=== PATIENT | male | born 1965 | race Caucasian/White ===

== ENCOUNTER 2017-05-04 19:22 | Observation (INO) | payer OTHER ==
[2017-05-04] MEDS ORDERED: Ondansetron INJ* 2 MG/ML VIAL IV ONE (19:53)
[2017-05-04] MEDS ORDERED: Morphine INJ* 4 MG/ML 1 ML CARPUJECT IV ONE (19:53)
[2017-05-04] MEDS ORDERED: NS 0.9% 1000 ML* 1,000 ML IV ONE (19:53)
[2017-05-04 20:22] LABS: Hematocrit 53 % (42-52); Hemoglobin 17.8 g/dl (14.0-18.0); Mean Corpuscular HGB Conc 34 g/dl (31-36); Mean Corpuscular Hemoglobin 30 pg (27-31); Mean Corpuscular Volume 89 fL (80-94); Mean Platelet Volume 7 um3 (7.4-10.4); Red Blood Count 5.89 10^6/ul (4.0-5.4); Red Cell Distribution Width 14 % (10.5-15); White Blood Count 10.5 10^3/ul (3.5-10.8)
[2017-05-04 20:34] LABS: Albumin 3.9 g/dL (3.2-5.2); BUN/Creatinine Ratio 15.2 (8-20); Calcium 9.6 mg/dL (8.6-10.3); EGFR African American 102.1 (>60); EGFR Non-African American 79.4 (>60); Globulin 3.2 g/dL (2-4); Potassium 4.3 mmol/L (3.5-5.0); Total Bilirubin 0.8 mg/dL (0.2-1.0); Total Protein 7.1 g/dL (6.4-8.9)
--- NOTE | 2017-05-04 20:44 | RAD ---
HISTORY: Right hip tenderness COMPARISONS: None VIEWS: 3, Frontal view of the pelvis with frontal and frog-leg views of the right hip FINDINGS: BONE DENSITY: Normal. BONES: There is no displaced fracture. JOINTS: There is mild osteoarthritis of the right hip. ALIGNMENT: There is no dislocation. SOFT TISSUES: Unremarkable. OTHER FINDINGS: Degenerative changes are noted of the spine IMPRESSION: NO ACUTE OSSEOUS INJURY. IF SYMPTOMS PERSIST, RECOMMEND REPEAT IMAGING.
[2017-05-04] MEDS ORDERED: Iohexol 300* (CONTRAST) 10 ML SDV IV ONE (21:24)
[2017-05-04 23:07] LABS: Urine Bacteria Absent (Absent); Urine Bilirubin Negative (Negative); Urine Glucose Negative (Negative); Urine Nitrite Negative (Negative); Urine Sperm Present (Absent)
[2017-05-05] MEDS ORDERED: Morphine INJ* 4 MG/ML 1 ML CARPUJECT IV ONE (01:04)
[2017-05-05] MEDS ORDERED: Albuterol 2.5 MG/3 ML NEB.SOL* (0.083%) INH PRN (01:07)
[2017-05-05] MEDS ORDERED: Ondansetron INJ* 2 MG/ML VIAL IV PRN (01:08)
--- NOTE | 2017-05-05 02:00 | ED ---
Nikolas Patton Tiffany, scribed for Tee Poole on 05/04/17 at 2047 . Lower Extremity - HPI Summary HPI Summary: This patient is a 52 year old M BIBA to [facility] with a chief complaint of right hip pain since two days ago. The pain is in the back of his right leg. The patient rates the pain 10/10 in severity. Symptoms aggravated by movement. Symptoms alleviated by nothing. Patient reports being unable to ambulate. Patient denies dysuria. The patient reports that he did not fall or sustain trauma to his right hip. - History of Current Complaint Chief Complaint: EDHipPelvisInjury Stated Complaint: HIP PAIN Time Seen by Provider: 05/04/17 19:25 Hx Obtained From: Patient Onset/Duration: Days - 2 Severity Currently: Severe Pain Intensity: 10 Pain Scale Used: 0-10 Numeric Associated Signs And Symptoms: Positive: Negative - Dsyuria Aggravating Factor(s): Movement Alleviating Factor(s): Nothing - Allergies/Home Medications Allergies/Adverse Reactions: Allergies Allergy/AdvReac Type Severity Reaction Status Date / Time Loratadine [From Claritin] Allergy Intermediate Hives Verified 05/04/17 19:25 Bupropion Allergy See Comment Verified 05/05/17 01:02 Home Medications: Home Medications Acetaminophen TAB* [Tylenol TAB*] 325 mg PO Q4H PRN 05/05/17 [History Confirmed 05/05/17] Allopurinol TAB* [Zyloprim 100 MG TAB*] 100 mg PO DAILY 05/05/17 [History Confirmed 05/05/17] Aspirin TAB* [Aspirin 325 MG TAB*] 325 mg PO DAILY 05/05/17 [History Confirmed 05/05/17] Budesonide/Formote 160/4.5(NF) [Symbicort 160/4.5 (NF)] 2 puff INH BID 05/05/17 [History Confirmed 05/05/17] Clotrimazole 1% CREAM* [Clotrimazole 1%*] 1 applic TOPICAL BID 05/05/17 [ History Confirmed 05/05/17] Ropinirole Hydrochloride [Requip] 0.5 mg PO 05/05/17 [History] Valsartan TAB* [Diovan TAB*] 160 mg PO DAILY 05/05/17 [History Confirmed ] Vilazodone (NF) [Viibryd (NF)] 40 mg PO DAILY 05/05/17 [History Confirmed ] predniSONE TAB* [Deltasone TAB*] 20 mg PO DAILY 05/05/17 [History Confirmed ] PMH/Surg Hx/FS Hx/Imm Hx Previously Healthy: No Endocrine/Hematology History: Denies: Hx Diabetes Cardiovascular History: Reports: Hx Hypertension - ON MEDICATION FOR, Hx Myocardial Infarction - ? [place] 1986 Denies: Hx Angina, Hx Pacemaker/ICD Respiratory History: Reports: Hx Sleep Apnea Denies: Hx Asthma GI History: Reports: Hx Gastroesophageal Reflux Disease - HX OF IN THE PAST, Hx Ulcer - HX OF IN THE PAST History: Reports: Hx Kidney Stones - 10-15 YEARS AGO Musculoskeletal History: Reports: Hx Arthritis, Hx Gout, Other Musculoskeletal History - CYST REMOVED FROM BACK IN 1990 Sensory History: Reports: Hx Contacts or Glasses - READING GLASSES Denies: Hx Hearing Aid Opthamlomology History: Reports: Hx Contacts or Glasses - READING GLASSES Psychiatric History: Denies: Hx Panic Disorder - Surgical History Surgery Procedure, Year, and Place: TISSUE IN SACRAL AREA REMOVED-1990. [facility] Hx Anesthesia Reactions: No - Immunization History Date of Tetanus Vaccine: unk Date of Influenza Vaccine: none Infectious Disease History: No Infectious Disease History: Denies: Traveled Outside the [place] in Last 30 Days - Family History Known Family History: Positive: Cardiac Disease - Social History Alcohol Use: Occasionally Alcohol Amount: 6 PACK PER WEEK / 4 OUNCES OF VODKA PER WEEK Hx Substance Use: No Substance Use Type: Reports: None Substance Use Comment - Amount & Last Used: DOES RARELY Hx Tobacco Use: Yes Smoking Status (MU): Light Every Day Tobacco Smoker Type: Cigarettes Amount Used/How Often: 1 E-CIGARETTE, OCC. CIGARETTES- IN PROCESS OF QUITTING- SMOKER-38 YEARS Have You Smoked in the Last Year: Yes Review of Systems Negative: dysuria Positive: Other - Right hip pain All Other Systems Reviewed And Are Negative: Yes Physical Exam - Summary Physical Exam Summary: Appearance: Well appearing, no pain distress Skin: warm, dry, reflects adequate perfusion Head/face: normal Eyes: EOMI, ANIBAL ENT: normal Neck: supple, non-tender Respiratory: CTA, breath sounds present Cardiovascular: Pulse is feebly felt in right foot Abdomen: non-tender, soft Bowel: present Musculoskeletal: Tenderness in right lower quadrant and right groin, restricted ROM in right leg Neuro: normal, sensory motor intact, A&Ox3 Triage Information Reviewed: Yes Vital Signs On Initial Exam: Initial Vitals Temp Pulse Resp BP Pulse Ox 98.4 F 96 20 140/85 92 05/04/17 19:24 05/04/17 19:24 05/04/17 19:24 05/04/17 19:24 05/04/17 19:24 Vital Signs Reviewed: Yes - Jabier Coma Scale Coma Scale Total: 15 Diagnostics - Vital Signs Vital Signs Temp Pulse Resp BP Pulse Ox 05/04/17 19:24 98.4 F 96 20 140/85 92 - Laboratory Lab Results: Lab Results 05/04/17 05/04/17 05/04/17 Range/Units 20:10 20:10 20:10 WBC 10.5 (3.5-10.8) 10^3/ul RBC 5.89 H (4.0-5.4) 10^6/ul Hgb 17.8 (14.0-18.0) g/dl Hct 53 H (42-52) % MCV 89 (80-94) fL MCH 30 (27-31) pg MCHC 34 (31-36) g/dl RDW 14 (10.5-15) % Plt Count 226 (150-450) 10^3/ul MPV 7 L (7.4-10.4) um3 Neut % (Auto) 72.9 (38-83) % Lymph % (Auto) 13.8 L (25-47) % [place] % (Auto) 10.1 H (1-9) % Eos % (Auto) 2.0 (0-6) % Baso % (Auto) 1.2 (0-2) % Absolute Neuts (auto) 7.7 (1.5-7.7) 10^3/ul Absolute Lymphs (auto) 1.4 (1.0-4.8) 10^3/ul Absolute Monos (auto) 1.1 H (0-0.8) 10^3/ul Absolute Eos (auto) 0.2 (0-0.6) 10^3/ul Absolute Basos (auto) 0.1 (0-0.2) 10^3/ul Absolute Nucleated RBC 0.01 10^3/ul Nucleated RBC % 0.1 INR (Anticoag Therapy) 0.95 (0.77-1.02) APTT 31.0 (26.0-36.3) seconds Sodium 135 (133-145) mmol/L Potassium 4.3 (3.5-5.0) mmol/L Chloride 101 (101-111) mmol/L Carbon Dioxide 29 (22-32) mmol/L Anion Gap 5 (2-11) mmol/L BUN 15 (6-24) mg/dL Creatinine 0.99 (0.67-1.17) mg/dL Est GFR ( Amer) 102.1 (>60) Est GFR (Non-Af Amer) 79.4 (>60) BUN/Creatinine Ratio 15.2 (8-20) Glucose 146 H (70-100) mg/dL Calcium 9.6 (8.6-10.3) mg/dL Total Bilirubin 0.80 (0.2-1.0) mg/dL AST 12 L (13-39) U/L ALT 22 (7-52) U/L Alkaline Phosphatase 55 (34-104) U/L Total Protein 7.1 (6.4-8.9) g/dL Albumin 3.9 (3.2-5.2) g/dL Globulin 3.2 (2-4) g/dL Albumin/Globulin Ratio 1.2 (1-3) Lipase 103 H (11.0-82.0) U/L Urine Color Urine Appearance Urine pH (5-9) Ur Specific [place] (1.010-1.030) Urine Protein (Negative) Urine Ketones (Negative) Urine Blood (Negative) Urine Nitrate (Negative) Urine Bilirubin (Negative) Urine Urobilinogen (Negative) Ur Leukocyte Esterase (Negative) Urine WBC (Auto) (Absent) Urine RBC (Auto) (Absent) Ur Squamous Epith Cells (Absent) Urine Bacteria (Absent) Urine Sperm (Absent) Urine Glucose (Negative) 05/04/17 Range/Units 22:35 WBC (3.5-10.8) 10^3/ul RBC (4.0-5.4) 10^6/ul Hgb (14.0-18.0) g/dl Hct (42-52) % MCV (80-94) fL MCH (27-31) pg MCHC (31-36) g/dl RDW (10.5-15) % Plt Count (150-450) 10^3/ul MPV (7.4-10.4) um3 Neut % (Auto) (38-83) % Lymph % (Auto) (25-47) % [place] % (Auto) (1-9) % Eos % (Auto) (0-6) % Baso % (Auto) (0-2) % Absolute Neuts (auto) (1.5-7.7) 10^3/ul Absolute Lymphs (auto) (1.0-4.8) 10^3/ul Absolute Monos (auto) (0-0.8) 10^3/ul Absolute Eos (auto) (0-0.6) 10^3/ul Absolute Basos (auto) (0-0.2) 10^3/ul Absolute Nucleated RBC 10^3/ul Nucleated RBC % INR (Anticoag Therapy) (0.77-1.02) APTT (26.0-36.3) seconds Sodium (133-145) mmol/L Potassium (3.5-5.0) mmol/L Chloride (101-111) mmol/L Carbon Dioxide (22-32) mmol/L Anion Gap (2-11) mmol/L BUN (6-24) mg/dL Creatinine (0.67-1.17) mg/dL Est GFR ( Amer) (>60) Est GFR (Non-Af Amer) (>60) BUN/Creatinine Ratio (8-20) Glucose (70-100) mg/dL Calcium (8.6-10.3) mg/dL Total Bilirubin (0.2-1.0) mg/dL AST (13-39) U/L ALT (7-52) U/L Alkaline Phosphatase (34-104) U/L Total Protein (6.4-8.9) g/dL Albumin (3.2-5.2) g/dL Globulin (2-4) g/dL Albumin/Globulin Ratio (1-3) Lipase (11.0-82.0) U/L Urine Color Yellow Urine Appearance Clear Urine pH 5.0 (5-9) Ur Specific [place] 1.017 (1.010-1.030) Urine Protein Negative (Negative) Urine Ketones Negative (Negative) Urine Blood Negative (Negative) Urine Nitrate Negative (Negative) Urine Bilirubin Negative (Negative) Urine Urobilinogen Negative (Negative) Ur Leukocyte Esterase Trace H (Negative) Urine WBC (Auto) Trace(0-5/hpf) (Absent) Urine RBC (Auto) Absent (Absent) Ur Squamous Epith Cells Present H (Absent) Urine Bacteria Absent (Absent) Urine Sperm Present H (Absent) Urine Glucose Negative (Negative) Result Diagrams: 05/04/17 20:10 05/04/17 20:10 Lab Statement: Any lab studies that have been ordered have been reviewed, and results considered in the medical decision making process. - Radiology Hip Radiology Interpretation Completed By: Radiologist - NO ACUTE OSSEOUS INJURY. IF SYMPTOMS PERSIST, RECOMMEND REPEAT IMAGING. ED physician has reviewed this radiology report. - CT Abd/Pel CT Interpretation Completed By: Radiologist - No bowel obstruction, colitis, diverticulitis, free fluid or free air. Normal appendix. Unremarkable pancreas and gallbladder. Small hepatic cyst or hemangioma. Small right renal cyst. Patulous inguinal canals containing fat. Bone island S1. ED physician has reviewed this radiology report. Lower Extremity Course/Dx - Course Course Of Treatment: This patient is a 52 year old M BIBA to [facility] with a chief complaint of right hip pain since two days ago. CT Abd/Pel reveals, per radiologist, No bowel obstruction, colitis, diverticulitis, free fluid or free air. Normal appendix. Unremarkable pancreas and gallbladder. Small hepatic cyst or hemangioma. Small right renal cyst. Patulous inguinal canals containing fat. Bone island S1. Hip X-Ray reveals, per radiologist, NO ACUTE OSSEOUS INJURY. IF SYMPTOMS PERSIST, RECOMMEND REPEAT IMAGING. Urine culture obtained. In the ED course the patient was given Omnipaque, Morphine, and Zofran. I consulted with hospitalist, who agreed to admit patient. The patient is agreeable with this plan. - Diagnoses Differential Diagnosis/HQI/PQRI: Positive: Contusion, Dislocation, Fracture ( Closed), Sciatica, Sprain Provider Diagnoses: Right hip pain, Unable to ambulate - Physician Notifications Discussed Care Of Patient With: Ja Mora Time Discussed With Above Provider: 01:02 Instructed by Provider To: Other - Dr. Mora (hospitalist) agrees to admit the patient. Discharge - Discharge Plan Condition: Fair Disposition: ADMITTED TO [facility] Referrals: Saad Blanca MD [Primary Care Provider] - The documentation as recorded by the scribe, Connor,Karen accurately reflects the service I personally performed and the decisions made by , Tee Poole.
[2017-05-05 02:03] LABS: Hematocrit 51 % (42-52); Mean Corpuscular HGB Conc 33 g/dl (31-36); Mean Corpuscular Hemoglobin 30 pg (27-31); Mean Corpuscular Volume 90 fL (80-94); Mean Platelet Volume 7 um3 (7.4-10.4); Red Blood Count 5.69 10^6/ul (4.0-5.4); Red Cell Distribution Width 14 % (10.5-15); White Blood Count 9.8 10^3/ul (3.5-10.8)
[2017-05-05 02:17] LABS: EGFR African American 94.4 (>60); EGFR Non-African American 73.4 (>60)
[2017-05-05] MEDS: NS 0.9% 1000 ML* 1,000 ML IV SCH (04:52)
[2017-05-05 05:43] LABS: Hematocrit 53 % (42-52); Hemoglobin 17.7 g/dl (14.0-18.0); Mean Corpuscular HGB Conc 34 g/dl (31-36); Mean Corpuscular Hemoglobin 30 pg (27-31); Mean Corpuscular Volume 90 fL (80-94); Mean Platelet Volume 8 um3 (7.4-10.4); Red Blood Count 5.85 10^6/ul (4.0-5.4); Red Cell Distribution Width 14 % (10.5-15); White Blood Count 10.2 10^3/ul (3.5-10.8)
[2017-05-05] MEDS ORDERED: Nicotine Inhaler* 10 MG AMP INH PRN (06:03)
--- NOTE | 2017-05-05 06:26 | HP ---
H&P (Free Text) History and Physical: PCP: Caryn Blanca MD Date/Time: 05/05/2017 0105 CC: R groin pain HPI: Mr Pan is a 52YO morbidly obese white male HX HTN, COPD, gout reports onset Friday afternoon of R groin pain gradually progressing to severe leaving him unable to ambulate or lift either leg from the bed. He denies change in activity, injury, and fall. He relates a similar episode a few months ago lasting for 3 days before spontaneous resolution, but for which he was not evaluated. Pain is pressure-like, exacerbated by palpation & movement. There has been no F/C, sweats, rash, or other issues. PMedHx HTN COPD SURY gout restless leg syndrome Ambulatory Orders Acetaminophen TAB* [Tylenol TAB*] 325 mg PO Q4H PRN 05/05/17 Allopurinol TAB* [Zyloprim 100 MG TAB*] 100 mg PO DAILY 05/05/17 Aspirin TAB* [Aspirin 325 MG TAB*] 325 mg PO DAILY 05/05/17 Budesonide/Formote 160/4.5(NF) [Symbicort 160/4.5 (NF)] 2 puff INH BID 05/05/17 Ropinirole Hydrochloride [Requip] 0.5 mg PO BEDTIME 05/05/17 Valsartan TAB* [Diovan TAB*] 160 mg PO DAILY 05/05/17 Vilazodone (NF) [Viibryd (NF)] 40 mg PO DAILY 05/05/17 predniSONE TAB* [Deltasone TAB*] 20 mg PO DAILY 05/05/17 Allergies Loratadine [From Claritin] Allergy (Intermediate, Verified 05/04/17 19:25) Hives heart racing not sure if it was claritin or claritin d Bupropion Allergy (Verified 05/05/17 01:02) See Comment visual disturbances PSurgHx tonsillectomy cardiac cath 2015 (negative) back surgery SocHx: 1/2 PPD cigarettes, ~6 alcoholic drinks weekly, no recreational drugs; lives with his girlfriend; unemployed superintendent construction/burks; full code status FamHx: positive for HTN, DM, & CAD ROS: as above, otherwise reviewed and all were negative vitals: Vital Signs Temp 36.9 C 05/04/17 19:24 Pulse 89 05/05/17 04:14 Resp 18 05/05/17 04:14 BP 108/67 05/05/17 04:27 Pulse Ox 91 05/05/17 04:27 Intake & Output 05/04/17 05/04/17 05/05/17 11:59 23:59 11:59 Intake Total 1000 Balance 1000 Weight 125.645 kg Intake: IV Fluids 1000 Constitutional: NAD, normally developed, morbidly obese white male HEENM: atraumatic; sclera/conjunctiva: anicteric/clear; hearing: clinically intact; oropharynx: clear, mucosa moist Neck: soft tissue: non-tender; thyroid: normal Pulmonary: clear to auscultation bilaterally, good aeration, no accessory muscle use CV: RR/RR, normal S1S2, no carotid bruit, no jugular venous distention, 2+ B DP/ PT, no edema Abdominal: soft, non-distended, non-tender, no rebound/guarding/rigidity, normoactive bowel sounds, no hepatosplenomegaly or masses, no costovertebral angle tenderness Musculoskeletal: general: tender in R groin along inguinal ligament w/o impression of mass/hernia; gait: currently unable to ambulate 2nd pain, unable to lift either leg from bed w/o severe R groin pain, reasonable passive ROM but no active ROM of the R hip w/o severe pain Integumental: normal appearance and texture of affected area Psychiatric orientation: AA&O to PPS affect: calm mood: cooperative eye contact: good content: reliable responses: timely insight: fair Testing: Lab Results 05/04/17 05/04/17 05/04/17 Range/Units 20:10 20:10 20:10 WBC 10.5 (3.5-10.8) 10^3/ul RBC 5.89 H (4.0-5.4) 10^6/ul Hgb 17.8 (14.0-18.0) g/dl Hct 53 H (42-52) % MCV 89 (80-94) fL MCH 30 (27-31) pg MCHC 34 (31-36) g/dl RDW 14 (10.5-15) % Plt Count 226 (150-450) 10^3/ul MPV 7 L (7.4-10.4) um3 Neut % (Auto) 72.9 (38-83) % Lymph % (Auto) 13.8 L (25-47) % [place] % (Auto) 10.1 H (1-9) % Eos % (Auto) 2.0 (0-6) % Baso % (Auto) 1.2 (0-2) % Absolute Neuts (auto) 7.7 (1.5-7.7) 10^3/ul Absolute Lymphs (auto) 1.4 (1.0-4.8) 10^3/ul Absolute Monos (auto) 1.1 H (0-0.8) 10^3/ul Absolute Eos (auto) 0.2 (0-0.6) 10^3/ul Absolute Basos (auto) 0.1 (0-0.2) 10^3/ul Absolute Nucleated RBC 0.01 10^3/ul Nucleated RBC % 0.1 INR (Anticoag Therapy) 0.95 (0.77-1.02) APTT 31.0 (26.0-36.3) seconds Sodium 135 (133-145) mmol/L Potassium 4.3 (3.5-5.0) mmol/L Chloride 101 (101-111) mmol/L Carbon Dioxide 29 (22-32) mmol/L Anion Gap 5 (2-11) mmol/L BUN 15 (6-24) mg/dL Creatinine 0.99 (0.67-1.17) mg/dL Est GFR ( Amer) 102.1 (>60) Est GFR (Non-Af Amer) 79.4 (>60) BUN/Creatinine Ratio 15.2 (8-20) Glucose 146 H (70-100) mg/dL Calcium 9.6 (8.6-10.3) mg/dL Total Bilirubin 0.80 (0.2-1.0) mg/dL AST 12 L (13-39) U/L ALT 22 (7-52) U/L Alkaline Phosphatase 55 (34-104) U/L Total Protein 7.1 (6.4-8.9) g/dL Albumin 3.9 (3.2-5.2) g/dL Globulin 3.2 (2-4) g/dL Albumin/Globulin Ratio 1.2 (1-3) Lipase 103 H (11.0-82.0) U/L Urine Color Urine Appearance Urine pH (5-9) Ur Specific [place] (1.010-1.030) Urine Protein (Negative) Urine Ketones (Negative) Urine Blood (Negative) Urine Nitrate (Negative) Urine Bilirubin (Negative) Urine Urobilinogen (Negative) Ur Leukocyte Esterase (Negative) Urine WBC (Auto) (Absent) Urine RBC (Auto) (Absent) Ur Squamous Epith Cells (Absent) Urine Bacteria (Absent) Urine Sperm (Absent) Urine Glucose (Negative) 05/04/17 05/05/17 05/05/17 Range/Units 22:35 01:50 01:50 WBC (3.5-10.8) 10^3/ul RBC (4.0-5.4) 10^6/ul Hgb (14.0-18.0) g/dl Hct (42-52) % MCV (80-94) fL MCH (27-31) pg MCHC (31-36) g/dl RDW (10.5-15) % Plt Count (150-450) 10^3/ul MPV (7.4-10.4) um3 Neut % (Auto) (38-83) % Lymph % (Auto) (25-47) % [place] % (Auto) (1-9) % Eos % (Auto) (0-6) % Baso % (Auto) (0-2) % Absolute Neuts (auto) (1.5-7.7) 10^3/ul Absolute Lymphs (auto) (1.0-4.8) 10^3/ul Absolute Monos (auto) (0-0.8) 10^3/ul Absolute Eos (auto) (0-0.6) 10^3/ul Absolute Basos (auto) (0-0.2) 10^3/ul Absolute Nucleated RBC 10^3/ul Nucleated RBC % INR (Anticoag Therapy) 0.98 (0.77-1.02) APTT 28.7 (26.0-36.3) seconds Sodium (133-145) mmol/L Potassium (3.5-5.0) mmol/L Chloride (101-111) mmol/L Carbon Dioxide (22-32) mmol/L Anion Gap (2-11) mmol/L BUN 13 (6-24) mg/dL Creatinine 1.06 (0.67-1.17) mg/dL Est GFR ( Amer) 94.4 (>60) Est GFR (Non-Af Amer) 73.4 (>60) BUN/Creatinine Ratio (8-20) Glucose (70-100) mg/dL Calcium (8.6-10.3) mg/dL Total Bilirubin (0.2-1.0) mg/dL AST (13-39) U/L ALT (7-52) U/L Alkaline Phosphatase (34-104) U/L Total Protein (6.4-8.9) g/dL Albumin (3.2-5.2) g/dL Globulin (2-4) g/dL Albumin/Globulin Ratio (1-3) Lipase (11.0-82.0) U/L Urine Color Yellow Urine Appearance Clear Urine pH 5.0 (5-9) Ur Specific [place] 1.017 (1.010-1.030) Urine Protein Negative (Negative) Urine Ketones Negative (Negative) Urine Blood Negative (Negative) Urine Nitrate Negative (Negative) Urine Bilirubin Negative (Negative) Urine Urobilinogen Negative (Negative) Ur Leukocyte Esterase Trace H (Negative) Urine WBC (Auto) Trace(0-5/hpf) (Absent) Urine RBC (Auto) Absent (Absent) Ur Squamous Epith Cells Present H (Absent) Urine Bacteria Absent (Absent) Urine Sperm Present H (Absent) Urine Glucose Negative (Negative) 05/05/17 05/05/17 Range/Units 01:50 04:48 WBC 9.8 10.2 (3.5-10.8) 10^3/ul RBC 5.69 H 5.85 H (4.0-5.4) 10^6/ul Hgb 17.0 17.7 (14.0-18.0) g/dl Hct 51 53 H (42-52) % MCV 90 90 (80-94) fL MCH 30 30 (27-31) pg MCHC 33 34 (31-36) g/dl RDW 14 14 (10.5-15) % Plt Count 211 239 (150-450) 10^3/ul MPV 7 L 8 (7.4-10.4) um3 Neut % (Auto) 68.1 65.9 (38-83) % Lymph % (Auto) 17.0 L 19.2 L (25-47) % [place] % (Auto) 11.5 H 11.0 H (1-9) % Eos % (Auto) 2.7 2.8 (0-6) % Baso % (Auto) 0.7 1.1 (0-2) % Absolute Neuts (auto) 6.6 6.7 (1.5-7.7) 10^3/ul Absolute Lymphs (auto) 1.7 1.9 (1.0-4.8) 10^3/ul Absolute Monos (auto) 1.1 H 1.1 H (0-0.8) 10^3/ul Absolute Eos (auto) 0.3 0.3 (0-0.6) 10^3/ul Absolute Basos (auto) 0.1 0.1 (0-0.2) 10^3/ul Absolute Nucleated RBC 0.02 0.01 10^3/ul Nucleated RBC % 0.2 0.1 INR (Anticoag Therapy) (0.77-1.02) APTT (26.0-36.3) seconds Sodium (133-145) mmol/L Potassium (3.5-5.0) mmol/L Chloride (101-111) mmol/L Carbon Dioxide (22-32) mmol/L Anion Gap (2-11) mmol/L BUN (6-24) mg/dL Creatinine (0.67-1.17) mg/dL Est GFR ( Amer) (>60) Est GFR (Non-Af Amer) (>60) BUN/Creatinine Ratio (8-20) Glucose (70-100) mg/dL Calcium (8.6-10.3) mg/dL Total Bilirubin (0.2-1.0) mg/dL AST (13-39) U/L ALT (7-52) U/L Alkaline Phosphatase (34-104) U/L Total Protein (6.4-8.9) g/dL Albumin (3.2-5.2) g/dL Globulin (2-4) g/dL Albumin/Globulin Ratio (1-3) Lipase (11.0-82.0) U/L Urine Color Urine Appearance Urine pH (5-9) Ur Specific [place] (1.010-1.030) Urine Protein (Negative) Urine Ketones (Negative) Urine Blood (Negative) Urine Nitrate (Negative) Urine Bilirubin (Negative) Urine Urobilinogen (Negative) Ur Leukocyte Esterase (Negative) Urine WBC (Auto) (Absent) Urine RBC (Auto) (Absent) Ur Squamous Epith Cells (Absent) Urine Bacteria (Absent) Urine Sperm (Absent) Urine Glucose (Negative) CT abd/pel WO, personally reviewed: No bowel obstruction, colitis, diverticulitis, free fluid, or free air. Normal appendix. Unremarkable pancreas and gallbladder. Small hepatic cyst or hemangioma. XRY pelvis & R hip: IMPRESSION: NO ACUTE OSSEOUS INJURY. IF SYMPTOMS PERSIST, RECOMMEND REPEAT IMAGING. Impression: 52M presenting with intractable R groin pain of uncertain etiology DIAGNOSIS & PLAN Primary intractable R groin pain, suspect musculo-ligamentous : pain control : PT evaluation : consider orthopedic consult in AM : supportive care Secondary HTN : review meds once reconciled COPD : review meds once reconciled SURY : review meds once reconciled gout : review meds once reconciled restless leg syndrome : review meds once reconciled Admission Rational: observation for intractable R groin pain DVTp: heparin SQ Code Status: full
[2017-05-05] MEDS ORDERED: Mouth Piece, Nicotine* 1 EACH CARTRIDGE ONE (06:28)
[2017-05-05] MEDS: Omeprazole CAP* 20 MG PO SCH (06:41)
[2017-05-05] MEDS: Ketorolac INJ* 15 MG/ML 1 ML VIAL IV PRN (06:41)
--- NOTE | 2017-05-05 07:48 | RAD ---
INDICATION: Right lower quadrant pain. COMPARISON: There are no prior studies available for comparison. TECHNIQUE: A CT scan of the abdomen and pelvis was performed with intravenous and oral contrast following intravenous injection of 150 ml of Omnipaque 300 nonionic contrast. Contiguous axial sections were obtained from the lung bases through the symphysis pubis. Images were reconstructed in the coronal and sagittal planes. FINDINGS: There is mild dependent bilateral lower lobe subsegmental atelectasis. No pleural effusion is present. The liver and spleen are normal in size. The liver is decreased in attenuation consistent with fatty infiltration. There is a small nonspecific hypodense lesion present in the region of the caudate lobe of the liver measuring 1.5 x 1.7 cm in size which is a nonspecific finding although would favor a cyst or hemangioma. No calcified gallstones are seen. The pancreas appears to be within normal limits. The kidneys and adrenal glands are normal in size. No hydronephrosis is seen. There is a small cyst arising in the lower pole of the right kidney measuring 1.9 cm in size. The aorta is normal in caliber and demonstrates homogeneous contrast opacification. No significant enlarged retroperitoneal lymph nodes are seen. The stomach, small and large bowel appear nondistended. The appendix is within normal limits. There are scattered diverticuli within the transverse, descending and sigmoid colon. There is no evidence for diverticulitis or colitis. No free intraperitoneal air or fluid is seen. No significant focal osseous abnormality is seen. There is a small area of sclerosis within the S1 vertebra suggestive of a benign bone island. IMPRESSION: NO EVIDENCE FOR ACUTE FINDING OR CAUSE FOR THE PATIENT'S ABDOMINAL PAIN IS SEEN.
[2017-05-05] MEDS: Mometasone/Formoter 200/5 MDI INH SCH ×2 (07:50→21:29)
[2017-05-05] MEDS ORDERED: predniSONE TAB* 20 MG PO SCH (09:00)
[2017-05-05] MEDS: Allopurinol TAB* 100 MG PO SCH (09:52)
[2017-05-05] MEDS: Valsartan TAB* 160 MG PO SCH (09:52)
[2017-05-05] MEDS: Aspirin TAB* 325 MG PO SCH (09:52)
[2017-05-05] MEDS: PTO: Vilazodone (NF) 40 MG TAB PO SCH (10:49)
[2017-05-05] MEDS: fentaNYL* 50 MCG/ML 2 ML VIAL (100 MCG VIAL) IV SLOW PU PRN ×2 (11:25→18:17)
--- OUTSIDE RECORDS SUMMARY | 2017-05-05 12:56 | XMS REPORT ---
:1965 External Reference #:[id number] Author Organization [facility] Address [address] [address] Phone [phone] Care Team Providers Name Role Phone Saad Blanca MD Primary Care Physician Unavailable Payers Type Date Identification Numbers Payment Provider Subscriber Commercial Policy Number: [id number] [employer] Name: [id number] PayID: [id number] [place] [address] Problems Date Description Provider Status Onset: 06/16/2014 Essential hypertension Eduardo Mendez M.D. Active Onset: 06/16/2014 Snoring Eduardo Mendez M.D. Active Onset: 06/16/2014 Tobacco user Eduardo Mendez M.D. Active Onset: 08/05/2014 Dyssomnia Keesha Christianson MD Active Onset: 08/05/2014 Morbid obesity Keesha Christianson MD Active Onset: 08/08/2014 Erythrocytosis Eduardo Mendez M.D. Active Onset: 08/08/2014 Obstructive sleep apnea syndrome Eduardo Mendez M.D. Active Onset: 01/03/2015 Current tear of medial cartilage Henry Levine M.D. Active AND/OR meniscus of knee Onset: 08/03/2015 Complex tear of medial mensc, current Henry Levine M.D. Active injury, l knee, subs Onset: 08/28/2015 Bucket-hndl tear of medial mensc, Saad Blanca M.D. Active crnt injury, r knee, subs Onset: 04/22/2016 Chronic obstructive lung disease Saad Blanca M.D. Active Onset: 04/22/2016 Mild recurrent major depression Saad Blanca M.D. Active Onset: 05/09/2016 Diplopia Saad Blanca M.D. Active Onset: 05/17/2016 Obesity Saad Blanca M.D. 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 Active Family History Date Family Member(s) Problem(s) Comments General PGF Diabetes2 ; PGM breast cancer : (age 71 Years) Father due to CHF Father Diabetes Mother Parkinson Mother 70 Siblings 7 Siblings Brother at age 50 ?flu ; others alive and well Social History Type Date Description Comments Marital Status Lives With Girlfriend Occupation Construction ETOH Use Occasionally consumes alcohol Recreational Drug Use Former Drug User Marijuana every day since age 13 until 35 Smoking Patient is a former smoker Daily Caffeine Consumes on average 1 cup of regular coffee per day Daily Caffeine Consumes on average 1 cup of occ cup of coffee, not regular coffee per day everyday Exercise Type/Frequency Does not exercise Allergies, Adverse Reactions, Alerts Date Description Reaction Status Severity Comments 06/16/2014 Claritin active 05/17/2016 Bupropion visual disturb. active Moderate Medications Medication Date Status Form Strength Qnty SIG Indications Ordering Provider Prednisone 04/17 Active Tablets 20mg 10tab 2 tab by M25.579 s mouth 5 ika , MRubiDRubi Ropinirole HCL 03/03 Active Tablets 0.5mg 30tab 1 tablet F51.4 s daily in [place] the M.DRubi evening Valsartan 12/31 Active Tablets 160mg 30tab 1 by I10 s mouth [place]achikara every day , M.DRubi Viibryd 11/26 Active Tablets 40mg 30tab 1 by F33.0 s mouth [place]achikara every day , M.DRubi Clotrimazole 08/27 Active Cream 1% 90gm apply B35.9 twice Pachikara daily , MOlga Symbicort 04/05 Active Aerosol 160-4.5mc 30.6g 2 puff J44.9 g/Act m twice a day , M.D. Proair HFA 04/05 Active Aerosol 108(90Bas 25.5g 2 puffs J44.9 e) m ih every Pachikara mcg/Act 4 hours , M.D. as needed Aspirin Ec 08/04 Active Tablets 325mg [address] mouth every day Cpap Active Device as Unknown / directed hs Tylenol Active Tablets 325mg as needed / Viibryd 10/01 Hx Tablets 20mg 30tab once a s day 30mts CARLOS EDUARDO Awan - after 11/26 Viibryd Starter Pack 09/26 Hx Kit 10&20 1unit use as F33.0 mg s directed Pachika - , M.D. 10/01 Escitalopram Oxalate 05/17 Hx Tablets 10mg 30tab 1tab by F33.0 s mouth Pachikara - every day , M.D. 10/01 Valsartan 04/05 Hx Tablets 160mg 30tab 1 by F33.0 s mouth Pachikara - every day , M.D. 12/31 Bupropion HCL ER (XL) 04/05 Hx Tablets 150mg 30tab once F33.0 ER 24HR s daily in [facility] - the , M.D. 05/17 with food x week then 2 tab link Oxycodone HCL 11/27 Hx Tablets 5mg 20tab 1 tabs by s mouth Abner, - every 6 M.D. 05 hours needed Hydrocodone-Acetamino 11/23 Hx Tablets 5-325mg 60tab 1-2 by S83.232D Henry phen s mouth Abner, - every 4-6 M.D. 05 hours prn. Diltiazem HCL ER 08/27 Hx Caps ER 240mg 30cap once F33.0 Saad Coated 24HR s daily Pachika - , M.D. 04/05 Tramadol HCL 08/02 Hx Tablets 50mg 60tab 1 to 2 s tabs po Jerome, - every 6 M.D. 12/05 hours needed for pain. Can use with 2 ES Tylenol 500 mg. Naproxen 12/14 Hx Tablets 250mg 30tab 1 tablet 719.46 s by mouth Mendez, - twice a M.D. 08/01 day needed pain, with foods Naproxen 08/30 Hx Tablets 500mg 30tab 1 tablet 728.89 s by mouth Mendez, - twice a M.D. 12/14 day foods as needed pain Cyclobenzaprine HCL 08/30 Hx Tablets 10mg 45tab one by 728.89 s mouth Mendez, - three M.D. 08/01 times day as needed spasm Ibuprofen 08/04 Hx Tablets 200mg as needed - 11/11 Nystatin-Triamcinolon 07/08 Hx Cream 482170-8. 60gm Apply 1Unit/GM- over Mendez, - % affected M.D. 08/04 twice a day for 7 days. Hydrochlorothiazide 07/07 Hx Tablets 25mg 60tab 1/2 by s mouth Mendez, - every day M.D. 12/03 Hydrochlorothiazide 06/16 Hx Tablets 50mg 30tab 1 by s mouth Mendez, - every day M.D. 06/16 Hydrochlorothiazide 06/16 Hx Tablets 12.5mg 60tab 1 by s mouth Mendez, - every day M.D. 07/07 Lisinopril 06/16 Hx Tablets 20mg 120ta 1 tablet 401.9 bs by mouth Mendez, - twice a M.D. Losartan Potassium 06/16 Hx Tablets 50mg 180ta 1 by 401.9 bs mouth Mendez, - every day M.D. 08/01 Clotrimazole/Betameth 06/16 Hx Cream 1-0.05% 45gm apply 111.9 asone Dipropionate twice a Mendez, - day over M.D. 07/18 affected /2015 areas Hydrochlorothiazide 00 Hx Tablets 12.5mg 1 by Unknown /0000 mouth - every day 08/01 Clotrimazole/Betameth Hx Cream 1-0.05% apply 2 - Unknown asone Dipropionate /0000 3 times - daily as 08/01 Medications Administered in Office Medication Date Status Form Strength Qnty SIG Indications Ordering Provider Depomedbaldev Administered Injection Henry 80MG 015 Elizabeth Levine Immunizations CPT Code Status Date Vaccine Lot # [id number] Given 07/26/2016 Pneumonia Vaccine Vital Signs Date Vital Result Comment 04/17/2017 Weight 301.50 lb Heart Rate 90 /min BP Systolic Sitting 138 mmHg BP Diastolic Sitting 86 mmHg O2 % BldC Oximetry 91 % 03/18/2017 Height 70.5 inches 5'10.50" Weight 305.25 lb Heart Rate 76 /min BP Systolic 154 mmHg BP Diastolic 96 mmHg Body Temperature 98.7 F O2 % BldC Oximetry 98 % BMI (Body Mass Index) 43.2 kg/m2 03/03/2017 Weight 289.00 lb Heart Rate 87 /min BP Systolic Sitting 146 mmHg BP Diastolic Sitting 84 mmHg Body Temperature 97.8 F O2 % BldC Oximetry 91 % 12/31/2016 Height 70.50 inches 5'10.50" Weight 267.00 lb Heart Rate 82 /min BP Systolic 136 mmHg BP Diastolic 84 mmHg Body Temperature 97.9 F O2 % BldC Oximetry 97 % BMI (Body Mass Index) 37.8 kg/m2 11/26/2016 Weight 274.00 lb w/tools on Heart Rate 93 /min BP Systolic Sitting 110 mmHg BP Diastolic Sitting 70 mmHg Body Temperature 98.0 F O2 % BldC Oximetry 98 % 10/23/2016 Weight 273.25 lb with shoes Heart Rate 90 /min BP Systolic Sitting 146 mmHg LA lrg cuff BP Diastolic Sitting 88 mmHg LA lrg cuff Ejection Fraction 55% - 60% echo 09/27/15 09/26/2016 Weight 276.12 lb Heart Rate 91 /min BP Systolic Standing 160 mmHg BP Diastolic Standing 96 mmHg Body Temperature 97.9 F O2 % BldC Oximetry 98 % 08/27/2016 Weight 275.00 lb Heart Rate 95 /min BP Systolic Sitting 128 mmHg BP Diastolic Sitting 70 mmHg Body Temperature 98.4 F O2 % BldC Oximetry 95 % 07/26/2016 Weight 277.38 lb Heart Rate 88 /min BP Systolic Sitting 140 mmHg BP Diastolic Sitting 82 mmHg Body Temperature 98.5 F O2 % BldC Oximetry 94 % 06/13/2016 Weight 282.12 lb Heart Rate 98 /min BP Systolic Sitting 148 mmHg BP Diastolic Sitting 80 mmHg Body Temperature 97.9 F O2 % BldC Oximetry 98 % 05/17/2016 Height 70 inches 5'10" Weight 290.25 lb Heart Rate 92 /min BP Systolic Sitting 138 mmHg BP Diastolic Sitting 92 mmHg Body Temperature 97.7 F O2 % BldC Oximetry 96 % BMI (Body Mass Index) 41.6 kg/m2 05/09/2016 Height 70 inches 5'10" Weight 287.00 lb Heart Rate 92 /min BP Systolic Sitting 156 mmHg BP Diastolic Sitting 82 mmHg Body Temperature 98.5 F O2 % BldC Oximetry 93 % BMI (Body Mass Index) 41.2 kg/m2 04/22/2016 Height 70 inches 5'10" Weight 295.00 lb Heart Rate 98 /min BP Systolic Sitting 120 mmHg BP Diastolic Sitting 70 mmHg Body Temperature 97.3 F O2 % BldC Oximetry 97 % BMI (Body Mass Index) 42.3 kg/m2 04/05/2016 Height 70 inches 5'10" Weight 288.12 lb Heart Rate 93 /min BP Systolic Sitting 160 mmHg BP Diastolic Sitting 88 mmHg Body Temperature 98.0 F O2 % BldC Oximetry 95 % BMI (Body Mass Index) 41.3 kg/m2 12/08/2015 Height 70 inches 5'10" Weight 266.00 lb Body Temperature 98.2 F Pain Level 4 BMI (Body Mass Index) 38.2 kg/m2 12/05/2015 Height 70 inches 5'10" Weight 266.00 lb Heart Rate 98 /min BP Systolic Sitting 136 mmHg BP Diastolic Sitting 88 mmHg Body Temperature 98.5 F O2 % BldC Oximetry 97 % BMI (Body Mass Index) 38.2 kg/m2 11/24/2015 Height 70 inches 5'10" Weight 272.00 lb BP Systolic 140 mmHg BP Diastolic 82 mmHg Pain Level 4 BMI (Body Mass Index) 39.0 kg/m2 11/13/2015 Height 70 inches 5'10" Weight 268.00 lb with shoes Heart Rate 80 /min BP Systolic 144 mmHg Ra lrg cuff BP Diastolic 96 mmHg Ra lrg cuff BMI (Body Mass Index) 38.4 kg/m2 Ejection Fraction 55% - 60% echo 09/27/2015 10/18/2015 Height 70 inches 5'10" Weight 268.50 lb with shoes Heart Rate 82 /min BP Systolic 140 mmHg LA lrg cuff BP Diastolic 92 mmHg LA lrg cuff BMI (Body Mass Index) 38.5 kg/m2 Ejection Fraction 55%-60% echo 09/27/15 09/07/2015 Height 70 inches 5'10" Weight 266.75 lb with shoes Heart Rate 74 /min BP Systolic 132 mmHg Ra lrg cuff BP Diastolic 86 mmHg Ra lrg cuff BMI (Body Mass Index) 38.3 kg/m2 09/06/2015 Height 70 inches 5'10" Weight 279.00 lb Heart Rate 72 /min BP Systolic Sitting 136 mmHg BP Diastolic Sitting 88 mmHg Respiratory Rate 18 /min Pain Level 4 BMI (Body Mass Index) 40.0 kg/m2 08/28/2015 Height 70 inches 5'10" Weight 268.00 lb Heart Rate 84 /min BP Systolic Sitting 153 mmHg BP Diastolic Sitting 98 mmHg Body Temperature 98.3 F O2 % BldC Oximetry 96 % BMI (Body Mass Index) 38.4 kg/m2 08/03/2015 Height 70 inches 5'10" Weight 279.00 lb BMI (Body Mass Index) 40.0 kg/m2 01/03/2015 Height 70 inches 5'10" Weight 279.00 lb Heart Rate 89 /min BP Systolic Sitting 135 mmHg BP Diastolic Sitting 87 mmHg Respiratory Rate 20 /min Pain Level 4 BMI (Body Mass Index) 40.0 kg/m2 12/14/2014 Height 70 inches 5'10" Weight 279.12 lb Heart Rate 97 /min BP Systolic Sitting 140 mmHg BP Diastolic Sitting 90 mmHg O2 % BldC Oximetry 96 % BMI (Body Mass Index) 40.0 kg/m2 11/01/2014 Height 70 inches 5'10" Weight 285.00 lb Heart Rate 93 /min BP Systolic Sitting 138 mmHg BP Diastolic Sitting 80 mmHg Respiratory Rate 20 /min O2 % BldC Oximetry 92 % BMI (Body Mass Index) 40.9 kg/m2 08/30/2014 Height 70 inches 5'10" Weight 279.00 lb Heart Rate 55 /min BP Systolic Sitting 138 mmHg BP Diastolic Sitting 80 mmHg Pain Level 5 5/10, not moving O2 % BldC Oximetry 96 % BMI (Body Mass Index) 40.0 kg/m2 08/08/2014 Weight 285.00 lb Heart Rate 80 /min BP Systolic Sitting 138 mmHg BP Diastolic Sitting 88 mmHg Body Temperature 97.5 F O2 % BldC Oximetry 92 % 08/05/2014 Height 70 inches 5'10" Weight 287.38 lb with boots on Heart Rate 95 /min BP Systolic Sitting 138 mmHg BP Diastolic Sitting 74 mmHg Respiratory Rate 20 /min Body Temperature 97.3 F O2 % BldC Oximetry 98 % BMI (Body Mass Index) 41.2 kg/m2 Neck Circumference in inches 19.5 07/07/2014 Height 69.5 inches 5'9.50" Weight 293.50 lb Heart Rate 96 /min BP Systolic Sitting 138 mmHg BP Diastolic Sitting 70 mmHg Body Temperature 96.4 F O2 % BldC Oximetry 97 % BMI (Body Mass Index) 42.7 kg/m2 06/16/2014 Height 69.5 inches 5'9.50" Weight 297.00 lb Heart Rate 94 /min BP Systolic Sitting 128 mmHg BP Diastolic Sitting 86 mmHg Body Temperature 97.5 F BMI (Body Mass Index) 43.2 kg/m2 Results Test Date Test Result H/L Range Note CBC Auto Diff 04/17/2017 White Blood Count 9.2 10^3/uL 3.5-10.8 Red Blood Count 6.14 10^6/uL High 4.0-5.4 Hemoglobin 18.8 g/dL High 14.0-18.0 1 Hematocrit 55 % High 42-52 Mean Corpuscular Volume 90 fL 80-94 Mean Corpuscular Hemoglobin 31 pg 27-31 Mean Corpuscular HGB Conc 34 g/dL 31-36 Red Cell Distribution Width 14 % 10.5-15 Platelet Count 235 10^3/uL 150-450 Mean Platelet Volume 8 um3 7.4-10.4 Abs Neutrophils 6.4 10^3/uL 1.5-7.7 Abs Lymphocytes 1.5 10^3/uL 1.0-4.8 Abs Monocytes 1.0 10^3/uL High 0-0.8 Abs Eosinophils 0.2 10^3/uL 0-0.6 Abs Basophils 0 10^3/uL 0-0.2 Abs Nucleated RBC 0.01 10^3/uL Granulocyte % 69.7 % 38-83 Lymphocyte % 16.3 % Low 25-47 Monocyte % 11.2 % High 1-9 Eosinophil % 2.3 % 0-6 Basophil % 0.5 % 0-2 Nucleated Red Blood Cells % 0.1 Comp Metabolic Panel 04/17/2017 Sodium 140 mmol/L 133-145 Potassium 4.4 mmol/L 3.5-5.0 Chloride 102 mmol/L 101-111 Co2 Carbon Dioxide 31 mmol/L 22-32 Anion Gap 7 mmol/L 2-11 Glucose 135 mg/dL High 70-100 Blood Urea Nitrogen 15 mg/dL 6-24 Creatinine 1.03 mg/dL 0.67-1.17 BUN/Creatinine Ratio 14.6 8-20 Calcium 8.9 mg/dL 8.6-10.3 Total Protein 6.9 g/dL 6.4-8.9 Albumin 4.2 g/dL 3.2-5.2 Globulin 2.7 g/dL 2-4 Albumin/Globulin Ratio 1.6 1-3 Total Bilirubin 0.60 mg/dL 0.2-1.0 Alkaline Phosphatase 54 U/L 34-104 Alt 30 U/L 7-52 Ast 19 U/L 13-39 Egfr Non- 75.8 >60 Egfr 97.5 >60 2 Laboratory test finding 04/17/2017 Uric Acid 8.4 mg/dL High 4.4-7.6 Erythrocyte Sed Rate 4 mm/Hr 0-20 Comp Metabolic Panel 04/02/2016 Sodium 137 mmol/L 133-145 Potassium 4.5 mmol/L 3.5-5.0 Chloride 100 mmol/L Low 101-111 Co2 Carbon Dioxide 29 mmol/L 22-32 Anion Gap 8 mmol/L 2-11 Glucose 106 mg/dL High 70-100 Blood Urea Nitrogen 11 mg/dL 6-24 Creatinine 1.03 mg/dL 0.67-1.17 BUN/Creatinine Ratio 10.7 8-20 Calcium 9.3 mg/dL 8.6-10.3 Total Protein 7.2 g/dL 6.4-8.9 Albumin 4.1 g/dL 3.2-5.2 Globulin 3.1 g/dL 2-4 Albumin/Globulin Ratio 1.3 1-3 Total Bilirubin 1.00 mg/dL 0.2-1.0 Alkaline Phosphatase 58 U/L 34-104 Alt 24 U/L 7-52 Ast 19 U/L 13-39 Egfr Non- 76.1 >60 Egfr 97.9 >60 3 Lipid Profile (Trig/Chol/HDL) 04/02/2016 Triglycerides 106 mg/dL 4 Cholesterol 236 mg/dL 5 HDL Cholesterol 46.3 mg/dL 6 LDL Cholesterol 169 mg/dL 7 Laboratory test finding 04/02/2016 PSA Screening 1.375 ng/mL 0-4.000 8 Laboratory test finding 03/29/2016 Troponin-I (TnI) 0.01 ng/mL <0.03 9 Laboratory test finding 03/29/2016 Lactic Acid 1.3 mmol/L 0.5-2.0 10 Inr/Protime 11/06/2015 Inr 0.91 0.89-1.11 Basic Metabolic Panel 11/06/2015 Sodium 137 mmol/L 133-145 Potassium 4.5 mmol/L 3.5-5.0 Chloride 103 mmol/L 101-111 Co2 Carbon Dioxide 27 mmol/L 22-32 Anion Gap 7 mmol/L 2-11 Glucose 85 mg/dL 70-100 Blood Urea Nitrogen 14 mg/dL 6-24 Creatinine 0.94 mg/dL 0.67-1.17 BUN/Creatinine Ratio 14.9 8-20 Calcium 8.9 mg/dL 8.6-10.3 Egfr Non- 84.9 >60 Egfr 109.2 >60 11 CBC Auto Diff 11/06/2015 White Blood Count 7.4 10^3/uL 3.5-10.8 Red Blood Count 5.89 10^6/uL High 4.0-5.4 Hemoglobin 17.8 g/dL 14.0-18.0 Hematocrit 52 % 42-52 Mean Corpuscular Volume 89 fL 80-94 Mean Corpuscular Hemoglobin 30 pg 27-31 Mean Corpuscular HGB Conc 34 g/dL 31-36 Red Cell Distribution Width 14 % 10.5-15 Platelet Count 244 10^3/uL 150-450 Mean Platelet Volume 7 um3 Low 7.4-10.4 Abs Neutrophils 4.6 10^3/uL 1.5-7.7 Abs Lymphocytes 1.7 10^3/uL 1.0-4.8 Abs Monocytes 0.8 10^3/uL 0-0.8 Abs Eosinophils 0.3 10^3/uL 0-0.6 Abs Basophils 0.1 10^3/uL 0-0.2 Abs Nucleated RBC 0.01 10^3/uL Granulocyte % 61.6 % 38-83 Lymphocyte % 23.5 % Low 25-47 Monocyte % 10.6 % High 1-9 Eosinophil % 3.5 % 0-6 Basophil % 0.8 % 0-2 Nucleated Red Blood Cells % 0.2 Cath Panel 11/06/2015 Partial Thrombo Time PTT 35.6 seconds 26.0-36.3 Comp Metabolic Panel 12/23/2014 Sodium 138 mmol/L 133-145 12 Potassium 4.7 mmol/L 3.5-5.0 12 Chloride 105 mmol/L 101-111 12 Co2 Carbon Dioxide 23 mmol/L 22-32 12 Anion Gap 10 mmol/L 2-11 12 Glucose 95 mg/dL 70-100 12 Blood Urea Nitrogen 11 mg/dL 6-24 12 Creatinine 1.13 mg/dL 0.67-1.17 12 BUN/Creatinine Ratio 9.7 8-20 12 Calcium 9.0 mg/dL 8.6-10.3 12 Total Protein 6.7 g/dL 6.4-8.9 12 Albumin 4.1 g/dL 3.2-5.2 12 Globulin 2.6 g/dL 2-4 12 Albumin/Globulin Ratio 1.6 1-3 12 Total Bilirubin 0.50 mg/dL 0.2-1.0 12 Alkaline Phosphatase 56 U/L 34-104 12 Alt 29 U/L 7-52 12 Ast 21 U/L 13-39 12 Egfr Non- 69.0 >60 12 Egfr 88.7 >60 12, 13 CBC Auto Diff 12/23/2014 White Blood Count 7.5 10^3/uL 4.8-10.8 12 Red Blood Count 6.34 10^6/uL High 4.0-5.4 12 Hemoglobin 18.6 g/dL High 14.0-18.0 12 Hematocrit 57 % High 42-52 12 Mean Corpuscular Volume 89 fL 80-94 12 Mean Corpuscular Hemoglobin 29 pg 27-31 12 Mean Corpuscular HGB Conc 33 g/dL 31-36 12 Red Cell Distribution Width 14 % 10.5-15 12 Platelet Count 233 10^3/uL 150-450 12 Mean Platelet Volume 7 um3 Low 7.4-10.4 12 Abs Neutrophils 4.7 10^3/uL 1.5-7.7 12 Abs Lymphocytes 1.6 10^3/uL 1.0-4.8 12 Abs Monocytes 0.7 10^3/uL 0-0.8 12 Abs Eosinophils 0.3 10^3/uL 0-0.6 12 Abs Basophils 0.1 10^3/uL 0-0.2 12 Abs Nucleated RBC 0.01 10^3/uL 12 Granulocyte % 62.9 % 38-83 12 Lymphocyte % 21.7 % Low 25-47 12 Monocyte % 10.0 % High 1-9 12 Eosinophil % 4.6 % 0-6 12 Basophil % 0.8 % 0-2 12 Nucleated Red Blood Cells % 0.1 12 Lipid Profile (Trig/Chol/HDL) 12/23/2014 Triglycerides 60 mg/dL 12, 14 Cholesterol 193 mg/dL 12, 15 HDL Cholesterol 37.2 mg/dL 12, 16 LDL Cholesterol 144 mg/dL 12, 17 Urine Culture And Sensitivities 06/30/2014 Urine Culture (SEE NOTE) 18 Lipid Profile (Trig/Chol/HDL) 06/30/2014 Triglycerides 108 mg/dL 19, 20 Cholesterol 191 mg/dL 19, 21 HDL Cholesterol 29.5 mg/dL 19, 22 LDL Cholesterol 140 mg/dL 19, 23 Laboratory test 06/30/2014 TSH (Thyroid 0.60 IU/mL 0.34-5.60 19, 24 finding Stimulating Horm) CBC Auto Diff 06/30/2014 White Blood Count 8.2 10^3/uL 4.8-10.8 19 Red Blood Count 6.12 10^6/uL High 4.0-5.4 19 Hemoglobin 18.6 g/dL High 14.0-18.0 19 Hematocrit 55 % High 42-52 19 Mean Corpuscular Volume 90 fL 80-94 19 Mean Corpuscular Hemoglobin 30 pg 27-31 19 Mean Corpuscular HGB Conc 34 g/dL 31-36 19 Red Cell Distribution Width 14 % 10.5-15 19 Platelet Count 234 10^3/uL 150-450 19 Mean Platelet Volume 8 um3 7.4-10.4 19 Abs Neutrophils 4.6 10^3/uL 1.5-7.7 19 Abs Lymphocytes 2.4 10^3/uL 1.0-4.8 19 Abs Monocytes 1.0 10^3/uL High 0-0.8 19 Abs Eosinophils 0.3 10^3/uL 0-0.6 19 Abs Basophils 0 10^3/uL 0-0.2 19 Abs Nucleated RBC 0.01 10^3/uL 19 Granulocyte % 55.5 % 38-83 19 Lymphocyte % 28.7 % 25-47 19 Monocyte % 11.7 % High 1-9 19 Eosinophil % 3.5 % 0-6 19 Basophil % 0.6 % 0-2 19 Nucleated Red Blood Cells % 0.2 19 Urinalysis Profile 06/30/2014 Urine Color Yolanda 19 Urine Appearance Cloudy 19 Urine Specific [place] 1.024 1.010-1.030 19 Urine pH 5.0 5-9 19 Urine Urobilinogen Negative Negative 19 Urine Ketones Negative Negative 19 Urine Protein 1+(30 mg/dL) Negative 19 Urine Leukocytes Trace Negative 19 Urine Blood Negative Negative 19 Urine Nitrite Negative Negative 19 Urine Bilirubin Negative Negative 19 Urine Glucose Negative Negative 19 Urine White Blood Cell 1+(6-10/hpf) Absent 19 Urine Red Blood Cell Trace(0-2/hpf) Absent 19 Urine Bacteria Absent Absent 19 Urine Squamous Epithelial Cell Present Absent 19 Comp Metabolic Panel 06/30/2014 Sodium 136 mmol/L 133-145 19 Potassium 4.4 mmol/L 3.5-5.0 19 Chloride 100 mmol/L Low 101-111 19 Co2 Carbon Dioxide 29 mmol/L 22-32 19 Anion Gap 7 mmol/L 2-11 19 Glucose 103 mg/dL High 70-100 19 Blood Urea Nitrogen 16 mg/dL 6-24 19 Creatinine 1.14 mg/dL 0.67-1.17 19 BUN/Creatinine Ratio 14.0 8-20 19 Calcium 9.1 mg/dL 8.6-10.3 19 Total Protein 7.2 g/dL 6.4-8.9 19 Albumin 4.2 g/dL 3.2-5.2 19 Globulin 3.0 g/dL 2-4 19 Albumin/Globulin Ratio 1.4 1-3 19 Total Bilirubin 0.70 mg/dL 0.2-1.0 19 Alkaline Phosphatase 54 U/L 34-104 19 Alt 40 U/L 7-52 19 Ast 28 U/L 13-39 19 Egfr Non- 68.3 >60 19 Egfr 87.8 >60 19, 25 1 Consistent with previous results on 03/28/16. 2 Because ethnic data is not always readily available, this report includes an eGFR for both -Americans and non- Americans. The National Kidney Disease Education Program (NKDEP) does not endorse the use of the MDRD equation for patients that are not between the ages of 18 and 70, are , have extremes of body size, muscle mass, or nutritional status, or are non- or non-. According to the National Kidney Foundation, irrespective of diagnosis, the stage of the disease is based on the level of kidney function: Stage Description GFR(mL/min/1.73 m(2)) 1 Kidney damage with normal or decreased GFR 90 2 Kidney damage with mild decrease in GFR 60-89 3 Moderate decrease in GFR 30-59 4 Severe decrease in GFR 15-29 5 Kidney failure <15 (or dialysis) 3 Because ethnic data is not always readily available, this report includes an eGFR for both -Americans and non- Americans. The National Kidney Disease Education Program (NKDEP) does not endorse the use of the MDRD equation for patients that are not between the ages of 18 and 70, are , have extremes of body size, muscle mass, or nutritional status, or are non- or non-. According to the National Kidney Foundation, irrespective of diagnosis, the stage of the disease is based on the level of kidney function: Stage Description GFR(mL/min/1.73 m(2)) 1 Kidney damage with normal or decreased GFR 90 2 Kidney damage with mild decrease in GFR 60-89 3 Moderate decrease in GFR 30-59 4 Severe decrease in GFR 15-29 5 Kidney failure <15 (or dialysis) 4 Desirable <150 Borderline high 150-199 High 200-499 Very High >500 5 Desirable <200 Borderline high 200-239 High >239 6 Low <40 Desirable: 40-60 High: >60 7 Desirable: <100 mg/dL Near Optimal: 100-129 mg/dL Borderline High: 130-159 mg/dL High: 160-189 mg/dL Very High: >189 mg/dL 8 Serum levels of PSA measured using the [employer] DXI Hybritech immunoassay should not be interpreted as absolute evidence of the presence or absence of disease. The PSA value should be used in conjunction with other pertinent clinical diagnostic procedures. The values obtained with different assay methods or kits cannot be used interchangeably. 9 Reference Range and Interpretation: TnI (ng/mL) Interpretation Less Than 0.03 ng/mL Not supportive of diagnosis of DC 0.03 - 0.50 ng/mL Indeterminate: suggest serial studies if clinically indicated. Greater than 0.5 ng/mL Consistent with diagnosis of DC 10 [facility] Severe Sepsis and Septic Shock Management Bundle Measure requires all lactic acids initially measuring >2.0 mmol/L be repeated. 11 Because ethnic data is not always readily available, this report includes an eGFR for both -Americans and non- Americans. The National Kidney Disease Education Program (NKDEP) does not endorse the use of the MDRD equation for patients that are not between the ages of 18 and 70, are , have extremes of body size, muscle mass, or nutritional status, or are non- or non-. According to the National Kidney Foundation, irrespective of diagnosis, the stage of the disease is based on the level of kidney function: Stage Description GFR(mL/min/1.73 m(2)) 1 Kidney damage with normal or decreased GFR 90 2 Kidney damage with mild decrease in GFR 60-89 3 Moderate decrease in GFR 30-59 4 Severe decrease in GFR 15-29 5 Kidney failure <15 (or dialysis) 12 PT IS FASTING 13 Because ethnic data is not always readily available, this report includes an eGFR for both -Americans and non- Americans. The National Kidney Disease Education Program (NKDEP) does not endorse the use of the MDRD equation for patients that are not between the ages of 18 and 70, are , have extremes of body size, muscle mass, or nutritional status, or are non- or non-. According to the National Kidney Foundation, irrespective of diagnosis, the stage of the disease is based on the level of kidney function: Stage Description GFR(mL/min/1.73 m(2)) 1 Kidney damage with normal or decreased GFR 90 2 Kidney damage with mild decrease in GFR 60-89 3 Moderate decrease in GFR 30-59 4 Severe decrease in GFR 15-29 5 Kidney failure <15 (or dialysis) 14 Desirable <150 Borderline high 150-199 High 200-499 Very High >500 15 Desirable <200 Borderline high 200-239 High >239 16 Low <40 Desirable: 40-60 High: >60 17 Desirable: <100 mg/dL Near Optimal: 100-129 mg/dL Borderline High: 130-159 mg/dL High: 160-189 mg/dL Very High: >189 mg/dL 18 RUN DATE: 07/02/14 [facility] LAB LIVE PAGE 1 RUN TIME: [address] [place] [address] Specimen Inquiry Name: GAGANDEEP MORALES SR : [address]: Eduardo Mendez MD Acct: [id number] Unit: [id number] AGE: 49 Location: RESP Re06/30/14 SEX: M Status: REG REF SPEC: [id number] NANETTE: 06/30/14-[address]: Eduardo Mendez MD REQ: [id number] RECD: 06/30/14 STATUS: COMP _ SOURCE: URINE SPDESC: ORDERED: Urine Culture QUERIES: Provider Requisition # [id number] Procedure Result Verified Site Urine Culture Final 07/02/14- 1016 ML Organism 1 NORMAL ELENA [place] Count 1-10,000 (Few) CFU/ML END OF REPORT * ML=Testing performed at Main Lab DEPARTMENT OF PATHOLOGY, [address] [place] [address] Anthony Jackman M.D. Director [facility] # [id number] 19 FASTING 20 Desirable <150 Borderline high 150-199 High 200-499 Very High >500 21 Desirable <200 Borderline high 200-239 High >239 22 Low <40 Desirable: 40-60 High: >60 23 Desirable <100 Near Optimal 100-129 Borderline high 130-159 High 160-189 Very High >189 24 FASTING 25 Because ethnic data is not always readily available, this report includes an eGFR for both -Americans and non- Americans. The National Kidney Disease Education Program (NKDEP) does not endorse the use of the MDRD equation for patients that are not between the ages of 18 and 70, are , have extremes of body size, muscle mass, or nutritional status, or are non- or non-. According to the National Kidney Foundation, irrespective of diagnosis, the stage of the disease is based on the level of kidney function: Stage Description GFR(mL/min/1.73 m(2)) 1 Kidney damage with normal or decreased GFR 90 2 Kidney damage with mild decrease in GFR 60-89 3 Moderate decrease in GFR 30-59 4 Severe decrease in GFR 15-29 5 Kidney failure <15 (or dialysis) Procedures Date CPT Code Description Status 10/23/2016 77695 EKG Tracing & Interpretation Completed 08/30/2016 Colonoscopy Completed 08/15/2016 25207 Plethysmography Determination Lung Volumes & Per Completed Airway Resist 08/15/2016 77765 Pulmonary Function><Bronchodil Completed 11/27/2015 95984 Arthroscopy,Knee,Meniscectomy Medial Or Lateral Completed 11/27/2015 19562 Arthroscopy,Knee,Meniscectomy Medial Or Lateral Completed 11/08/2015 93140 Left Heart Cath. Incl S/I Coronaries, Angio S/I V Gram Completed If Done 10/11/2015 59551 Treadmill Interp/Report Only Completed 10/11/2015 57534 Stress Test Supervsn W/Out I/R Completed 09/25/2015 73184 ECHO Transthorasic Realtime 2D W Doppler & Color Completed [facility] 09/07/2015 99239 EKG Tracing & Interpretation Completed 08/28/2015 99163 EKG Tracing & Interpretation Completed 01/03/2015 38406 Inject/Drain Joint/Bursa Major Completed 10/01/2014 63613 Polysomnography Sleep Staging 4+ Parameters W/Cpap Completed 06/30/2014 54541 Pulmonary Function><Bronchodil Completed Encounters Type Date Location Provider CPT E/M Dx Office Visit 04/17/2017 Tracey Blanca 72117 M25.579 10:00a [facility] [place] Odilon Johnson F33.0 Office Visit 03/18/2017 1:40p Tracey Blanca M.D. 86486 F33.0 Medicine - [address] G25.81 K62.5 Office Visit 03/03/2017 3:00p Tracey Blanca M.D. 80451 F33.0 Medicine - [address] I10 F51.4 Office Visit 12/31/2016 4:00p [facility] Saad Blanca M.D. 77387 F33.0 Medicine - [address] I10 Office Visit 11/26/2016 2:40p [facility] aSad Blanca M.D. 41825 F33.0 Medicine - [address] M77.11 Office Visit 10/23/2016 3:40p [facility] GriseldaRubi Longluc[place]ito, [address] I10 [place] J44.9 E66.9 G47.33 E78.4 Office Visit 09/26/2016 4:00p [facility] Saad Blanca M.D. 61256 F33.0 Medicine - [address] I10 J44.9 Office Visit 08/27/2016 1:40p [facility] Saad Blanca, 66046 D37.032 Medicine - [address] Elizabeth B35.9 Office Visit 07/26/2016 2:40p [facility] Saad Blanca M.D. 88051 F33.0 Medicine - [address] J44.9 Z23 Office Visit 06/13/2016 4:00p [facility] Saad Blanca M.D. 84463 F33.0 Medicine - [address] Office Visit 05/17/2016 2:40p [facility] Saad Blanca M.D. 30279 F33.0 Medicine - [address] E66.9 Office Visit 05/09/2016 4:00p [facility] Saad Blanca M.D. 00738 I10 - [address] F33.0 H53.2 Office Visit 04/22/2016 3:00p [facility] Saad Blanca M.D. 54209 I10 - [address] J44.9 F33.0 Office Visit 04/05/2016 3:20p [facility] Saad Blanca M.D. 16552 I10 - [address] J44.9 E66.9 F17.210 G47.33 Z00.01 F33.0 Z12.11 Office Visit 12/05/2015 4:00p [facility] Saad Blanca M.D. 14451 I10 - [address] Z12.5 E66.9 Office Visit 11/13/2015 3:40p [facility] S. 43320 R94.39 Tracey Bustillos M.D. I10 E66.9 Z72.0 Z01.818 Office Visit 10/18/2015 2:00p [facility] S. Tressa, 69327 R06.02 M.D. F17.290 I10 G47.33 R94.39 I51.7 I36.1 Office Visit 09/07/2015 1:40p [facility] S. Tressa, 29813 R94.31 M.DRubi R06.02 F17.210 I10 G47.33 Z01.810 E66.8 Office Visit 08/28/2015 3:20p [facility] Davilla Jacquelinechuy, 97368 Z01.818 Medicine - [address] Elizabeth I10 S83.211D F17.210 G47.33 R94.31 Office Visit 08/03/2015 1:00p [facility] 33475 M23.322 Of Debbie Johnson Office Visit 01/03/2015 1:30p [facility] 48705 836.0 Of Debbie Johnson Office Visit 12/14/2014 4:00p [facility] Eduardo Mendez M.D. 13500 401.[address] 790.21 272.4 791.0 289.0 719.46 305.1 Office Visit 11/01/2014 9:15a [facility] [place] [address] 327.23 [facility] 278.01 305.1 Office Visit 08/30/2014 3:20p [facility] Medicine Eduardo Mendez M.D. 35473 728.[address] - [address] 401.9 327.23 278.01 728.85 401.1 Office Visit 08/08/2014 3:40p [facility] Eduardo Mendez M.D. 00811 401.[address] - [address] 790.21 289.0 786.2 327.23 791.0 272.4 719.41 305.1 278.01 401.1 Office Visit 08/05/2014 8:15a [facility] [place] [address] 278.01 [facility] 305.1 780.57 401.9 Office Visit 07/07/2014 3:40p [facility] Medicine Eduardo Mendez M.D. 73161 401[address] 790.21 289.0 786.2 327.23 791.0 111.9 305.1 278.01 401.1 Office Visit 06/16/2014 9:00a [facility] Medicine Eduardo Mendez M.D. 47862 401.9 - [place] 786.2 111.9 327.23 305.1 278.01 401.1 Plan of Care Future Appointment(s):04/25/2017 8:20 am - Saad Blanca M.D. at [facility] Medicine - [address]04/17/2017 - Saad Blanca M.D.M25.579 Pain in unspecified ankle and joints of unspecified footNew Medication:Prednisone 20 mgFollow up:1 weekF33.0 Major depressive disorder, recurrent, mildComments: Since the symptoms of depression, unchanged we'll get psychiatric consultReferral:[facility], [facility] Health/Counselor
--- NOTE | 2017-05-05 14:30 | PN ---
Subjective Date of Service: 05/05/17 Interval History: Patient seen and examined at bedside. Pt states that he continues to have right groin pain, right groin tenderness and pain with movement of his right LE. Denies fever, chills, shortness of breath (at baseline), chest discomfort, N/V/ D. Pt states that he was treated for a GOUT flair earlier this month with prednisone. He reports a previous episode that started in the right hip and moved to the left hip and resolved spontaneously. Pt states that he is unable to pick his right LE off the bed without pain, he is able to slide his foot on the floor. He reports pain when bearing weight on the right LE. Family History: Unchanged from Admission Social History: Unchanged from Admission Past Medical History: Unchanged from Admission Objective Active Medications: Albuterol (Ventolin 2.5 Mg/3 Ml Neb.Kenia*) 2.5 mg INH Q2H PRN Reason: SOB/ WHEEZING Allopurinol (Zyloprim Tab*) 100 mg PO DAILY [facility] Aspirin (Aspirin Tab*) 325 mg PO DAILY [facility] Fentanyl Citrate (Fentanyl*) 25 mcg IV SLOW PU Q2H PRN Reason: PAIN Heparin Sodium (Porcine) (Heparin Vial(*)) 5,000 units SUBCUT Q8HR [facility] Sodium Chloride (Ns 0.9% 1000 Ml*) 1,000 mls @ 50 mls/hr IV PER RATE [facility] Ketorolac Tromethamine (Toradol Inj*) 15 mg IV Q6H PRN Reason: PAIN Mometasone Furoate/Formoterol Fumar (Dulera 200/5 Mdi*) 2 puff INH BID [facility] Nicotine (Nicotine Inhaler*) 10 mg INH Q2H PRN Reason: CRAVING Omeprazole (Prilosec Cap*) 20 mg PO DAILY@0600 [facility] Ondansetron HCl (Zofran Inj*) 4 mg IV Q6H PRN Reason: NAUSEA Prednisone (Deltasone Tab*) 20 mg PO DAILY [facility] Valsartan (Diovan Tab*) 160 mg PO DAILY [facility] Vilazodone HCl (Viibryd (Nf)) 40 mg PO DAILY [facility] Vital Signs - 8 hr 05/05/17 05/05/17 05/05/17 07:40 07:45 07:51 Temperature 98.4 F 97.9 F Pulse Rate 100 78 Respiratory 18 18 16 Rate Blood Pressure 143/78 139/70 (mmHg) O2 Sat by Pulse 91 91 Oximetry 05/05/17 05/05/17 05/05/17 11:25 11:33 13:07 Temperature 98.4 F Pulse Rate 69 Respiratory 20 20 18 Rate Blood Pressure 121/73 (mmHg) O2 Sat by Pulse 90 Oximetry Oxygen Devices in Use Now: None Appearance: NAD, sitting up on the side of the bed Ears/Nose/Mouth/Throat: Mucous Membranes Moist Respiratory: Symmetrical Chest Expansion and Respiratory Effort, Clear to Auscultation - , diminished Cardiovascular: NL Sounds; No Murmurs; No JVD, RRR Abdominal: NL Sounds; No Tenderness; No Distention - Large and round Extremities: No Edema, - - Tenderness to right groin with palpation. No tenderness to palpation of the back or lateral hip join. Skin: No Rash or Ulcers Neurological: Alert and Oriented x 3, NL Muscle Strength and Tone Lines/Tubes/Other Access: Clean, Dry and Intact Peripheral IV - site benign Nutrition: Taking PO's Result Diagrams: 05/05/17 04:48 05/05/17 01:50 Additional Lab and Data: Assess/Plan/Problems-Billing Assessment: Mr. Pan is a 52 yo male with PMH significant for HTN, COPD, SURY, gout and RLS who presented to the emergency room with complaints of intractable right groin pain. - Patient Problems (1) Right inguinal pain Code(s): R10.31 - RIGHT LOWER QUADRANT PAIN SNOMED Code(s): 682050532 Comment: - Continues to have pain - Continue pain management and PT - Will add ESR and CRP to this AMs labs - Will ask ortho to consult (2) HTN (hypertension) Code(s): I10 - ESSENTIAL (PRIMARY) HYPERTENSION SNOMED Code(s): 40522245 Comment: - Normotensive - Continue Valsartan (3) COPD (chronic obstructive pulmonary disease) Code(s): J44.9 - CHRONIC OBSTRUCTIVE PULMONARY DISEASE, UNSPECIFIED SNOMED Code(s): 39412480 Comment: - No signs of an exacerbation at this time - Continue home inhalers (4) SURY (obstructive sleep apnea) Code(s): G47.33 - OBSTRUCTIVE SLEEP APNEA (ADULT) (PEDIATRIC) SNOMED Code(s): 58192351 Comment: - O2 at bedtime (5) Gout Code(s): M10.9 - GOUT, UNSPECIFIED SNOMED Code(s): 75435050 Comment: - Continue Allopurinol (6) RLS (restless legs syndrome) Comment: - Continue requip (7) Depression Code(s): F32.9 - MAJOR DEPRESSIVE DISORDER, SINGLE EPISODE, UNSPECIFIED SNOMED Code(s): 92567332 Comment: - Continue viibryd (8) DVT prophylaxis Code(s): XHF8647 - SNOMED Code(s): 071163911 Comment: - SQ Heparin (9) Full code status Code(s): Z78.9 - OTHER SPECIFIED HEALTH STATUS SNOMED Code(s): 699792357 Status and Disposition: OBV. Discharge to home when medically stable.
[2017-05-05 14:58] LABS: C Reactive Protein 55.85 mg/L (< 5.00)
[2017-05-05 15:45] LABS: Erythrocyte Sed Rate 13 mm/Hr (0-20)
[2017-05-05 16:41] LABS: Uric Acid 6.6 mg/dL (4.4-7.6)
[2017-05-05] MEDS ORDERED: Ropinirole TAB* 0.5 MG TAB PO SCH (21:00)
--- NOTE | 2017-05-05 21:03 | CONS ---
CONSULTATION REPORT: DATE OF CONSULT: 05/05/17 HISTORY OF PRESENT ILLNESS: Mr. Pan is on the medical service, admitted a day ago for right hip pain. He has not had a history of trauma to the right hip. The pain is in the right groin, which radiates down toward the knee, it is associated with his active range of motion of the lower extremity. This began 3 days ago mildly and has increased to this point where he has pain nowhere else except the right groin area, but it inhibits his ability to transport or to get in and out of bed or weight bear on the right side. He did have a history of migratory arthralgia about a month ago starting in the right hip, then travelling to the left hip and also into the right heel. This all without any history of trauma, but the high suspicion has been for gout and he is on allopurinol. I do not see uric acid having been drawn in the chart. Mr. Pan also does not have a history of a back injury. He had a soft tissue infection in the back area, but nothing bony and no spine problems in the past. He has a medical history positive for hypertension, COPD, there is a question of gout. He is a disabled construction superintendent. He does have obesity as well. PHYSICAL EXAMINATION: His examination shows him to be pleasant, alert gentleman , lying supine in bed, no acute distress. His leg lengths are equal, held with similar rotation. He is able to move his toes up and down and has intact sensation to the foot. He has pain with any log rolling of the right lower extremity and passive flexion as well at the hip. He points to his groin as the main area of pain with this examination. DIAGNOSTIC DATA: His CT scan is reviewed and does not show an abnormality of the right hip, acetabulum, or right hemipelvis. Plain view similar findings of the right hip. ASSESSMENT/PLAN: The patient with atraumatic right hip pain, possible history of gout. I do not see uric acid value. I would recommend an MRI scan of the pelvis and right hip. If there is an effusion, then I think tapping the hip would be helpful for diagnostic purposes. I do not suspect that he has had a significant bone injury to the right hip. [id number]/[facility] #: [id number] [facility] MEDICAL CENTERLouie
[2017-05-06] MEDS: fentaNYL* 50 MCG/ML 2 ML VIAL (100 MCG VIAL) IV SLOW PU PRN ×2 (01:02→08:35)
[2017-05-06] MEDS: Omeprazole CAP* 20 MG PO SCH (05:02)
[2017-05-06] MEDS: NS 0.9% 1000 ML* 1,000 ML IV SCH (05:02)
[2017-05-06] MEDS ORDERED: Heparin VIAL(*) 5000 UNITS/ML VIAL (FIVE THOUSAND) SUBCUT SCH (06:00)
--- NOTE | 2017-05-06 07:37 | RAD ---
INDICATION: Right hip pain. COMPARISON: Comparison is made with a prior x-ray study of the right hip from May 04, 2017. TECHNIQUE: Axial and coronal T1 and T2-weighted images of the pelvis were obtained. FINDINGS: The bones are in normal alignment and signal intensity. No fracture or avascular necrosis is seen. No joint effusion is present. There appears to be mild bilateral osteoarthritic change in the hips. There are a couple cysts adjacent to the superior portion of the left acetabulum most consistent with sublabral cysts and underlying labral tear. There is also a cyst adjacent to the anterior lateral aspect of the sacrum on the left side at the S1 level measuring 1.3 cm in size. There is mild bone marrow edema present in the symphysis pubis. There is edema present in the medial aspect of the right obturator externus and pectineus muscles most consistent with a mild muscle tears. No significant enlarged pelvic or inguinal lymph nodes are seen. No free intraperitoneal fluid is seen. IMPRESSION: MILD PARTIAL TEARS OF THE RIGHT OBTURATOR EXTERNUS AND PECTINEUS MUSCLES.
[2017-05-06] MEDS: Mometasone/Formoter 200/5 MDI INH SCH (08:08)
[2017-05-06] MEDS: Allopurinol TAB* 100 MG PO SCH (08:34)
[2017-05-06] MEDS: Aspirin TAB* 325 MG PO SCH (08:34)
[2017-05-06] MEDS: Valsartan TAB* 160 MG PO SCH (08:34)
[2017-05-06] MEDS: PTO: Vilazodone (NF) 40 MG TAB PO SCH (08:35)
[2017-05-06 12:28] VITALS: BP 134/78
[2017-05-06] MEDS: Ketorolac INJ* 15 MG/ML 1 ML VIAL IV PRN (12:41)
--- NOTE | 2017-05-06 12:54 | PN ---
Subjective Date of Service: 05/06/17 Interval History: Patient seen and examined at bedside. Denies fever, chills, shortness of breath , chest discomfort, N/V/D. Pt states that he continues to have right groin pain , but this is improving. Pt states that when he was getting out of bed last night he felt a "pop" in his back and now the pain that was going down his leg is gone. Pt is able to lift right leg up today and wasn't yesterday. Patient needs to have a walker with a seat to allow him to sit and rest while ambulating. Family History: Unchanged from Admission Social History: Unchanged from Admission Past Medical History: Unchanged from Admission Objective Active Medications: Albuterol (Ventolin 2.5 Mg/3 Ml Neb.Kenia*) 2.5 mg INH Q2H PRN Reason: SOB/ WHEEZING Allopurinol (Zyloprim Tab*) 100 mg PO DAILY [facility] Aspirin (Aspirin Tab*) 325 mg PO DAILY [facility] Heparin Sodium (Porcine) (Heparin Vial(*)) 5,000 units SUBCUT Q8HR [facility] Sodium Chloride (Ns 0.9% 1000 Ml*) 1,000 mls @ 50 mls/hr IV PER RATE [facility] Mometasone Furoate/Formoterol Fumar (Dulera 200/5 Mdi*) 2 puff INH BID [facility] Reason: Protocol Nicotine (Nicotine Inhaler*) 10 mg INH Q2H PRN Reason: CRAVING Omeprazole (Prilosec Cap*) 20 mg PO DAILY@0600 [facility] Ondansetron HCl (Zofran Inj*) 4 mg IV Q6H PRN Reason: NAUSEA Ropinirole HCl (Requip Tab*) 0.5 mg PO BEDTIME [facility] Valsartan (Diovan Tab*) 160 mg PO DAILY [facility] Vilazodone HCl (Viibryd (Nf)) 40 mg PO DAILY [facility] Vital Signs - 8 hr 05/06/17 05/06/17 05/06/17 07:59 08:09 08:35 Temperature 98.4 F Pulse Rate 75 78 Respiratory 16 14 18 Rate Blood Pressure 132/68 (mmHg) O2 Sat by Pulse 91 92 Oximetry 05/06/17 11:22 Temperature 98.5 F Pulse Rate 79 Respiratory 16 Rate Blood Pressure 134/78 (mmHg) O2 Sat by Pulse 95 Oximetry Oxygen Devices in Use Now: None Appearance: NAD, sitting up on the side of the bed Ears/Nose/Mouth/Throat: Mucous Membranes Moist Respiratory: Symmetrical Chest Expansion and Respiratory Effort, Clear to Auscultation Cardiovascular: NL Sounds; No Murmurs; No JVD, RRR Abdominal: NL Sounds; No Tenderness; No Distention Extremities: No Edema Skin: No Rash or Ulcers Neurological: Alert and Oriented x 3, NL Muscle Strength and Tone Lines/Tubes/Other Access: Clean, Dry and Intact Peripheral IV - site benign Nutrition: Taking PO's Result Diagrams: 05/05/17 04:48 05/05/17 01:50 Additional Lab and Data: Assess/Plan/Problems-Billing Assessment: Mr. Pan is a 52 yo male with PMH significant for HTN, COPD, SURY, gout and RLS who presented to the emergency room with complaints of intractable right groin pain. - Patient Problems (1) Right inguinal pain Code(s): R10.31 - RIGHT LOWER QUADRANT PAIN SNOMED Code(s): 200926147 Comment: - Continues to have pain, improving - Continue pain management and PT - CRP elevated, uric acid WNL - MRI shows small muscle tears - Ortho consult, input appreciated (2) HTN (hypertension) Code(s): I10 - ESSENTIAL (PRIMARY) HYPERTENSION SNOMED Code(s): 44174779 Comment: - Normotensive - Continue Valsartan (3) COPD (chronic obstructive pulmonary disease) Code(s): J44.9 - CHRONIC OBSTRUCTIVE PULMONARY DISEASE, UNSPECIFIED SNOMED Code(s): 24236013 Comment: - No signs of an exacerbation at this time - Continue home inhalers (4) SURY (obstructive sleep apnea) Code(s): G47.33 - OBSTRUCTIVE SLEEP APNEA (ADULT) (PEDIATRIC) SNOMED Code(s): 66177014 Comment: - O2 at bedtime - Resume CPAP at home (5) Gout Code(s): M10.9 - GOUT, UNSPECIFIED SNOMED Code(s): 43356749 Comment: - Continue Allopurinol (6) RLS (restless legs syndrome) Comment: - Continue requip (7) Depression Code(s): F32.9 - MAJOR DEPRESSIVE DISORDER, SINGLE EPISODE, UNSPECIFIED SNOMED Code(s): 12779533 Comment: - Continue viibryd (8) DVT prophylaxis Code(s): VWK8046 - SNOMED Code(s): 855660088 Comment: (9) Full code status Code(s): Z78.9 - OTHER SPECIFIED HEALTH STATUS SNOMED Code(s): 836516627 Status and Disposition: OBV. Stable for discharge to home today
--- NOTE | 2017-05-07 05:29 | DS ---
CC: Dr. Saad Blanca * DISCHARGE SUMMARY: DATE OF ADMISSION: 05/05/17 DATE OF DISCHARGE: 05/06/17 ATTENDING PHYSICIAN: Dr. Bernard Alvarez * (dictated by Maine Shrestha NP). PRIMARY CARE PROVIDER: Dr. Saad Blanca. PRIMARY DIAGNOSIS: Right groin strain. SECONDARY DIAGNOSES: 1. Obesity. 2. Chronic obstructive pulmonary disease. 3. Hypertension. 4. Obstructive sleep apnea. 5. Gout. 6. Restless legs syndrome. CONSULTATIONS WHILE IN THE HOSPITAL: Dr. Bernard Cano with Orthopedics. STUDIES WHILE IN THE HOSPITAL: 1. Abdomen and pelvis CT on 05/04/17. Radiologist's impression: No evidence for acute findings or cause for the patient's abdominal pain is seen. 2. Right hip and pelvis x-ray from 05/04/17. Radiologist's impression: No acute osseous injury. If symptoms persist, recommend repeat imaging. 3. Pelvis MRI on 05/05/17. Radiologist's impression: Mild partial tears of the right obturator externus and pectineus muscles. DISCHARGE MEDICATIONS: New home medications: 1. Tramadol 50 mg oral every 12 hours as needed for severe pain. 2. Omeprazole 20 mg oral daily. 3. Nicotine inhaler 10 mg inhalation every 2 hours as needed for nicotine craving. 4. Ibuprofen 600 mg oral every 6 hours as needed for pain. Continued home medications: 1. Allopurinol 100 mg oral daily. 2. Aspirin 325 mg oral daily. 3. Symbicort 160/4.5 two puffs inhalation twice daily. 4. Valsartan 160 mg oral daily. 5. Viibryd 40 mg oral daily. 6. Requip 0.5 mg oral daily at bedtime. HISTORY OF PRESENT ILLNESS/HOSPITAL COURSE: Mr. Pan is a 52-year-old male with past medical history significant for morbid obesity, hypertension, COPD, and gout, who reports sudden onset of right groin pain that was gradually progressing severe enough to leave him unable to ambulate or lift his legs in the bed. He denied any change in activity, recent injury, or falls. He had a similar episode a few months ago that lasted for a few days and spontaneously resolved and initially started in his right hip and migrated to his left hip. He reports due to its spontaneous resolving, he never sought treatment for it. The patient describes the pain as pressure like, exacerbated by palpation and movement. He denies any recent fever, chills, sweats, rashes, or other health issues. He presented to the emergency room for further evaluation of his symptoms. While in the emergency room, the patient had a CT of the abdomen and pelvis with no significant findings. He had an x-ray of his pelvis and right hip showing no acute osseous injury. Due to the patient's pain and inability to ambulate, the hospitalists were asked to evaluate the patient for admission. While in the hospital, the patient's pain improved. He described it as a pain radiating from his right groin down around his leg and down his leg. He was seen by physical therapy. Due to his continued pain, Orthopedics was asked to consult on the patient. They recommended an MRI. The patient underwent an MRI of his right hip that showed muscular tear. There was also concern for the patient possibly having gout, although his uric acid was not elevated. He was found to have an elevated CRP of 55.85. The patient's pain continued to improve. The patient reports rolling in bed last night and feeling a pop in his back. After that, the pain radiating down his leg has resolved, but he reports continued pain with palpation and pain in his right leg. He is now able to lift his right leg off the bed. I suspect he may have had some sciatic involvement and that nerve is no longer pinched. He was able to ambulate with the use of a walker. It was felt that he was ready for discharge to home today. Mr. Pan is stable for discharge to home today. PHYSICAL EXAMINATION: Vital Signs are as follows: Temperature 98.5, heart rate 79, respiratory rate 16, O2 sat 95% on room air, blood pressure 134/78. DISCHARGE PLAN: Mr. Pan will be discharged to home today. Activity as tolerated. He will be on a regular heart-healthy diet. As far as the patient's right hip pain, I suspect this will improve with physical therapy and caused by muscle strain. The patient should be encouraged to lose weight also. We continued on ibuprofen 600 mg oral every 6 hours as needed for pain. In addition, he can take Tylenol for his pain. I had given him a few tablets of tramadol to take 50 mg oral every 12 hours as needed for severe pain. Due to the possibility of increased NSAID use, I have started him on a short course of omeprazole. As far as the patient's smoking, he has been encouraged to stop smoking and I prescribed him nicotine inhalers. The patient has a followup appointment with his primary care provider Dr. Saad Blanca on 05/15/17 at 8 :30 a.m. The patient has also been given a prescription for physical therapy and encouraged to follow up with one of the local physical therapy offices. The patient has been asked to return to the emergency room for any chest pain or shortness of breath. I believe physical therapy will also help with any of the patient's back issues also. This is a summarized report of a complex medical history and hospital stay. For further details, please see the entire medical record. TIME SPENT: Time for this discharge was approximately 50 minutes, greater than half of that was spent [id number] with the patient discussing discharge plans and instructions. CONDITION ON DISCHARGE: Stable. Reviewed by SHOSHANA BAE 05/07/172041 [id number]/[facility] #: [id number] KEVIN
== END 2017-05-06 15:00 | disposition home or self-care (01) ==
LOC: ED 19:22 → MEDTELE 05-05 01:05
PROVIDERS: ADMIT Hospitalist; ATTEND Internal Medicine
DX: M25.551 Pain in right hip (principal); S39.011A Strain of muscle, fascia and tendon of abdomen, initial encounter; E66.9 Obesity, unspecified; I10 Essential (primary) hypertension; G47.33 Obstructive sleep apnea (adult) (pediatric); M10.9 Gout, unspecified; G25.81 Restless legs syndrome; J44.9 Chronic obstructive pulmonary disease, unspecified; Z79.82 Long term (current) use of aspirin; G89.4 Chronic pain syndrome; X58.XXXA Exposure to other specified factors, initial encounter; Y93.9 Activity, unspecified; Y92.89 Other specified places as the place of occurrence of the external cause; Y99.8 Other external cause status; F17.210 Nicotine dependence, cigarettes, uncomplicated
CPT/HCPCS: 36415; 72195; 74177; 80053; 81003; 81015; 82565; 83690; 84520; 84550; 85025; 85610; 85652; 85730; 86140; 87086; 94640; 96361; 96374; 96375; 96376; 99284; 99406; A9270-GY; G0378; G8978-GP-CI; G8978-GP-CK; G8979-GP-CI; G8980-GP-CI; J1644; J1885; J2270; J2405; J3010; J7512; Q9967

== ENCOUNTER 2018-07-12 14:06 | Emergency (ER) | payer OTHER ==
[2018-07-12] MEDS ORDERED: Indomethacin CAP* 25 MG CAP PO ONE (15:21)
--- NOTE | 2018-07-12 15:23 | ED ---
Lower Extremity - HPI Summary HPI Summary: Patient is a 53-year-old male with a history of htn, gout, HLD presenting to the ED with acute onset severe R knee pain 4 days ago and now developed yesterday swelling. He has been ambulating with a walker at home d/t pain. Continues to remain on allopurinol and states he has not had a gout flare up since he has been taking this medication. His previous gout flareups have been in his ankles although never officially diagnosed. He has never had the ankles or knees tapped in the past. Patient states his physician stated he had a slightly elevated uric acid level and assumed this was gout, placing him on allopurinol. He denies any erythema to the area. He does have a history of osteoarthritis in the bilateral knees. He denies any fevers, sweats, chills. He denies any erythema around the knee. Patient does endorse heavy drinking, denies smoking. - History of Current Complaint Chief Complaint: EDExtremityLower Stated Complaint: RIGHT KNEE PAIN Time Seen by Provider: 07/12/18 14:55 Hx Obtained From: Patient Mechanism Of Injury: Other - no konwn injury Onset of Pain: Hours Onset/Duration: Hours Severity Initially: Severe Severity Currently: Severe Pain Intensity: 8 Pain Scale Used: 0-10 Numeric Timing: Constant Location: Is Discrete @ - right knee pain and swelling Character Of Pain: Aching Associated Signs And Symptoms: Positive: Swelling. Negative: Redness, Bruising , Fever Aggravating Factor(s): Standing, Ambulation Alleviating Factor(s): Rest Able to Bear Weight: No - Risk Factors Gout Risk Factors: Age Over 40, Male, Hypertension, Hyperlipidemia, Obesity DVT Risk Factors: Negative Septic Arthritis Risk Factor: Negative - Allergies/Home Medications Allergies/Adverse Reactions: Allergies Allergy/AdvReac Type Severity Reaction Status Date / Time bupropion Allergy Rash And Verified 07/12/18 14:21 Itching loratadine Allergy Hives Verified 07/12/18 14:21 PMH/Surg Hx/FS Hx/Imm Hx Previously Healthy: Yes Endocrine/Hematology History: Denies: Hx Diabetes Cardiovascular History: Reports: Hx Hypertension, Hx Myocardial Infarction - ? [place] 1986 Denies: Hx Angina, Hx Pacemaker/ICD Respiratory History: Reports: Hx Chronic Obstructive Pulmonary Disease (COPD), Hx Sleep Apnea Denies: Hx Asthma GI History: Reports: Hx Gastroesophageal Reflux Disease, Hx Ulcer - HX OF IN THE PAST History: Reports: Hx Kidney Stones Denies: Hx Renal Disease Musculoskeletal History: Reports: Hx Arthritis, Hx Gout, Other Musculoskeletal History - CYST REMOVED FROM BACK IN 1990 Sensory History: Reports: Hx Contacts or Glasses - READING GLASSES Denies: Hx Hearing Aid Opthamlomology History: Reports: Hx Contacts or Glasses - READING GLASSES Psychiatric History: Reports: Hx Depression - was told he is borderline depressed by his primary per pt Denies: Hx Panic Disorder - Surgical History Surgery Procedure, Year, and Place: TISSUE IN SACRAL AREA REMOVED-1990. [facility]. HEART CATH - NO STENTS. Lt knee - MMT Hx Anesthesia Reactions: No - Immunization History Date of Tetanus Vaccine: unk Date of Influenza Vaccine: none Hx Pertussis Vaccination: No Immunizations Up to Date: Yes Infectious Disease History: No Infectious Disease History: Denies: Traveled Outside the [place] in Last 30 Days - Family History Known Family History: Positive: Cardiac Disease - Social History Occupation: Unemployed Lives: With Family Alcohol Use: Rare Alcohol Amount: 6 PACK PER WEEK / 4 OUNCES OF VODKA PER WEEK Hx Substance Use: No Substance Use Type: Reports: None Substance Use Comment - Amount & Last Used: DOES RARELY Hx Tobacco Use: Yes Smoking Status (MU): Light Every Day Tobacco Smoker Type: Cigarettes Amount Used/How Often: 1 E-CIGARETTE, OCC. CIGARETTES- IN PROCESS OF QUITTING- SMOKER-38 YEARS Have You Smoked in the Last Year: Yes Review of Systems Constitutional: Negative ENT: Negative Cardiovascular: Negative Gastrointestinal: Negative Genitourinary: Negative Positive: no symptoms reported, see HPI Positive: Arthralgia - right knee pain and swelling, Myalgia Skin: Negative Neurological: Negative All Other Systems Reviewed And Are Negative: Yes Physical Exam Triage Information Reviewed: Yes Vital Signs On Initial Exam: Initial Vitals Temp Pulse Resp BP Pulse Ox 98.2 F 85 16 152/91 96 07/12/18 14:16 07/12/18 14:16 07/12/18 14:16 07/12/18 14:16 07/12/18 14:16 Vital Signs Reviewed: Yes Appearance: Positive: Well-Appearing, Well-Nourished Skin: Positive: Warm, Skin Color Reflects Adequate Perfusion Neck: Positive: Supple, No Lymphadenopathy Respiratory/Lung Sounds: Positive: Clear to Auscultation, Breath Sounds Present Cardiovascular: Positive: RRR, Pulses are Symmetrical in both Upper and Lower Extremities Musculoskeletal: Positive: Pain @ - right knee pain - large joint effusion to the suprapatellar and lateral portions of the knee Neurological: Positive: Speech Normal Psychiatric: Positive: Affect/Mood Appropriate AVPU Assessment: Alert Procedures - Procedure Summary Procedure Summary: See procedures note in the "course of treatment" Diagnostics - Vital Signs Vital Signs Temp Pulse Resp BP Pulse Ox 07/12/18 14:16 98.2 F 85 16 152/91 96 - Laboratory Result Diagrams: 07/12/18 17:41 Lab Statement: Any lab studies that have been ordered have been reviewed, and results considered in the medical decision making process. Lower Extremity Course/Dx - Course Course Of Treatment: Patient is evaluated for acute onset right knee pain which is severe in nature. He states he took oxycodone at home with mild relief. He states he has not taken any NSAIDs. He is given indomethacin 50 mg in the ED and x-rays obtained. This did not improve his sxs. Xrays show large joint effusion. Patient has been taking allopurinol daily for gout, states this feels different. On physical examination there is a large joint effusion with no surrounding erythema or warmth. No trauma. No abraions or puncture wounds noted. Knee arthrocentesis performed: Using sterile technique, under US, knee effusion most notably to the suprapatellar area and lateral portion of the R knee. 8cc's Lidocaine without epi used as local anesthetic with good effect. Needle inserted just posterior and medial to the patella directed slightly posteriorly and inferiorly. 40cc's yellow cloudy opaque fluid aspirated. Patient states immediate relief. Analysis shows 59,000 white count with 97% neuts. Cloudy and yellow in appearance. CRP 80.61. Labs show WBC 9.7. Patient is afebrile. He is given hydrocodone during his stay. Discussed with Dr. Hodgson who suggests this may be Lyme. Will cover with doxy BID x 21 days and he will see ortho in the office this weeks. Return precautions given. Patient states he is feeling improved and would like to be DC'd home. - Diagnoses Differential Diagnosis/HQI/PQRI: Positive: Gout, Other - Septic joint, inflammatory, hemorrhagic, Lyme arthritis, gout Provider Diagnoses: Knee effusion - Physician Notifications Discussed Care Of Patient With: Marilyn Hodgson Instructed by Provider To: Have Pt Call For Appt. Discharge - Sign-Out/Discharge Documenting (check all that apply): Patient Departure Patient Received Moderate/Deep Sedation with Procedure: No - Discharge Plan Condition: Stable Disposition: HOME Prescriptions: DOXYcycline CAP(*) [DOXYcycline 100MG CAP(*)] 100 mg PO BID #42 cap oxyCODONE/Acetamin 10/325(NF) [Percocet 10/325 (NF)] 1 tab PO Q6H #12 tab MDD 4 Patient Education Materials: Lyme Disease (ED), Knee Bursitis (ED) Referrals: Saad Blanca MD [Primary Care Provider] - Marilyn Hodgson MD [Medical Doctor] - Additional Instructions: Take doxycycycline twice daily x 21 [address] Follow up with Dr. Hodgson's office this week Call to make an appt Keep taking ibuprofen for pain control at this time You may also use tylenol - Billing Disposition and Condition Condition: STABLE Disposition: Home
[2018-07-12] MEDS ORDERED: HYDROcodone/ACETAMIN 5-325 MG* 1 TAB PO ONE (16:46)
[2018-07-12 17:59] LABS: Body Fluid Source Synovial Fluid
[2018-07-12 17:59] LABS: White Blood Count 9.7 10^3/ul (3.5-10.8)
[2018-07-12 18:51] LABS: Body Fluid Mono 1 %
[2018-07-12] MEDS ORDERED: DOXYcycline CAP(*) 100 MG PO ONE (19:14)
[2018-07-12] MEDS ORDERED: oxyCODONE/Acetamin 5/325 MG* TAB PO ONE (19:27)
[2018-07-12 19:39] VITALS: BP 143/76
[2018-07-17 01:17] LABS: B. garinii/B. afzellii PCR Negative (Negative); Lyme Disease Source SYNOVIAL FLUID
== END 2018-07-12 19:30 | disposition home or self-care (01) ==
LOC: ED 14:06
DX: M25.461 Effusion, right knee (principal); M25.561 Pain in right knee; M11.261 Other chondrocalcinosis, right knee; M17.11 Unilateral primary osteoarthritis, right knee; Z88.8 Allergy status to other drugs, medicaments and biological substances; F17.210 Nicotine dependence, cigarettes, uncomplicated
CPT/HCPCS: 20610; 36415; 85048; 85652; 86140; 87070; 87205; 87476; 87640; 87641; 87798; 89051; 89060; 99282; A9270-GY

== ENCOUNTER 2018-10-05 08:40 | Day surgery (SDC) | payer OTHER ==
[~2018-10-05 08:40] MED LIST: Buffered Lidocaine 1% SYRIN* 1 ML/SYRINGE INTRADERM ONE; Famotidine TAB* 20 MG ONE; Famotidine TAB* 20 MG PO ONE; Lactated Ringers 1000 ML Bag* 1,000 ML IV SCH; Lidocaine 2% PF * 5 ML VIAL ONE; Metoclopramide IV* 5 MG/ML 2 ML VIAL IV SLOW PU ONE; Metoclopramide IV* 5 MG/ML 2 ML VIAL ONE; Midazolam* 1 MG/ML 2 ML VIAL (2 MG) ONE; Propofol* 10 MG/ML 20 ML BTL ONE; ceFAZolin 1 GM in Dextrose (*) 1 GM/50 ML BAG IVPB ONE; ceFAZolin 2 GM PREMIX in ORs 2 GM/50 ML BAG IVPB ONE; fentaNYL* 50 MCG/ML 2 ML VIAL (100 MCG VIAL) ONE
[2018-10-05] MEDS ORDERED: Dexamethasone IV* 4 MG/ML 1 ML (4 MG) ONE (10:14)
[2018-10-05] MEDS ORDERED: EPINEPHRINE 1 MG/ML 1 ML VIAL ONE ×2 (10:15→10:27)
[2018-10-05] MEDS ORDERED: Lidocaine 1% INJ* 10 MG/ML 30 ML SDV ONE (10:15)
[2018-10-05] MEDS ORDERED: Levalbuterol 0.63MG/3ML NEB* UNIT OF USE INH ONE ×2 (10:15→10:18)
[2018-10-05] MEDS ORDERED: Bupivacaine 0.25% W/EPI* 10 ML SDV ONE (10:15)
[2018-10-05] MEDS ORDERED: HYDROmorphone INJ1* 1 MG/ML SYRINGE IV PRN (10:16)
[2018-10-05] MEDS ORDERED: Naloxone* 0.4 MG/ML 1 ML VIAL IV PRN (10:16)
[2018-10-05] MEDS ORDERED: DiMENhydriNATE IV* 50 MG/ML VIAL IV PUSH PRN (10:16)
[2018-10-05] MEDS ORDERED: PROCHLORPERAZINE INJ 5 MG/ML 2 ML VIAL IV PRN (10:16)
[2018-10-05] MEDS ORDERED: Acetaminophen IV 1GM/100ML * 1,000 MG/100 ML VIAL IVPB ONE (10:16)
[2018-10-05] MEDS ORDERED: fentaNYL* 50 MCG/ML 2 ML VIAL (100 MCG VIAL) IV PRN (10:16)
[2018-10-05] MEDS ORDERED: Ketorolac INJ* 30 MG/ML 1 ML VIAL IV PRN (10:16)
[2018-10-05] MEDS ORDERED: oxyCODONE TAB* 5 MG TAB PO PRN (10:16)
[2018-10-05] MEDS ORDERED: Succinylcholine* 20 MG/ML 10 ML VIAL ONE (10:30)
[2018-10-05] MEDS ORDERED: hydrALAZINE IV* 20 MG/ML VIAL ONE (10:39)
[2018-10-05] MEDS ORDERED: fentaNYL* 50 MCG/ML 2 ML VIAL (100 MCG VIAL) ONE (10:43)
[2018-10-05] MEDS ORDERED: Labetalol IV* 5 MG/ML 20 ML VIAL IV PUSH PRN (10:51)
[2018-10-05] MEDS ORDERED: hydrALAZINE IV* 20 MG/ML VIAL IV SLOW PU PRN (10:53)
[2018-10-05] MEDS ORDERED: Ondansetron INJ* 2 MG/ML VIAL ONE (10:58)
[2018-10-05 13:10] VITALS: BP 134/88
--- NOTE | 2018-10-05 15:59 | OP ---
DATE OF OPERATION: 10/05/18 - [facility] DATE OF : 65 ATTENDING PHYSICIAN: Henry Levine MD GAS ENGINE OPERATOR GENERATORS: Kiana Solano RPA ANESTHESIA: General. PRE-OP DIAGNOSIS: Right knee medial meniscus tear. 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 OPERATIVE PROCEDURES: 1. Right knee arthroscopy. 2. Partial medial meniscectomy. 3. Chondroplasty. ESTIMATED BLOOD LOSS: Negligible. COMPLICATIONS: None. SUMMARY: Mr. Pan is a 53-year-old male who, for the past few months, has been having troubles with severe right knee pain and swelling. He had presented to the office and he had some very specific medial joint line tenderness. He had undergone an MRI, which showed a medial meniscus tear as well as some narrowing of the medial joint space. I discussed with him considering the pain that he had, a knee arthroscopy should work well to decrease the pain from his meniscus tear and let the knee improve. Risks of surgery such as infection, scar formation, stiffness, DVT, pulmonary embolism, and continued pain were some of the risks discussed. He had several medical issues and underwent optimization and had been declared medically optimized. DESCRIPTION OF PROCEDURE: The patient was brought to the OR and general endotracheal anesthesia was established. Right knee was prepped and then draped. Portal sites were preinjected using a mixture of 0.25% Marcaine with epinephrine and 1% lidocaine. Standard lateral portal was made first using an # 11 blade. Blunt trocar to sheath was easily introduced into the knee and a passed under the patella. Camera was introduced into the sheath and the knee was allowed to insufflate. Pulling back, quite a bit of red irritated synovium was immediately evident in the pouch. Coming back, wear on the underside of his patella was immediately seen. Pictures were taken. Dropping down the medial gutter, again quite a bit of red irritated synovium was present and medial compartment was entered. There was synovium pushing in on the top side of meniscus as well. Under direct vision, medial portal was made and shaver was introduced to take down the synovium and improve the view. It could be seen he had wear especially on the medial femoral condyle and there were loose flaps of articular cartilage there. Shaver was used to smooth down the cartilage and removed the loose pieces. Probe was introduced and it could be seen where he had a small pedunculated piece of his medial meniscus, which would flip back and forth. Shaver was introduced and used to smooth this down as well as the torn edges of his meniscus tear. Eventually, it was nicely smoothed down and using the probe, remainder of meniscus was nice and stable. Coming into the notch, he again had a bit of synovium pushing in and this was taken down using the shaver. Lateral compartment was in much better condition. He had a few little specs of what appeared to be chondro-calcinosis. Coming up the notch and coming back up to the patellofemoral joint, quite a bit of red irritated synovium was taken down and the underside of the patella was gently brushed using the shaver to again take down the loose pieces of cartilage. Second look revealed no additional pathology and all instrumentation was removed. Portal sites were closed using 4-0 nylon sutures. The knee was injected with a total of 30 cc of 0.25% Marcaine with epinephrine and 1% lidocaine and 8 mg dexamethasone. Sterile dressing and a Cryo/Cuff were applied in the OR. The patient was then extubated in the OR and was stable on transfer to the recovery room. DISPOSITION/DISCHARGE SUMMARY: Mr. Pan is a 53-year-old male who just underwent a right knee arthroscopy. He tolerated the procedure well. There were no complications. He is currently waking up in the OR. Once he has been extubated, he will be transferred back here to the recovery room and once he can tolerate p.o., has his pain well controlled and can avoid, he will be discharged home. Script for Ramirez was e-scribed to the pharmacy here in the hospital, so that he can pick this up on his way out. He has instructions to keep his dressing clean, dry, and intact for the next 3 days, but after that may take his dressing down, cover his sutures with bandage, may shower, wash and get it wet, but should not soak it. I would like to see him in the office in approximately 7 to 10 days, remove his sutures, and make sure he is doing well. If there are any problems or if anything odd should occur, there are instructions to give the office a call. [id number]/[facility] #: [id number] KEVIN
== END 2018-10-05 13:10 | disposition home or self-care (01) ==
LOC: OR 08:40
PROVIDERS: ATTEND Orthopaedic Surgery
DX: S83.231A Complex tear of medial meniscus, current injury, right knee, initial encounter (principal); M94.261 Chondromalacia, right knee; X58.XXXA Exposure to other specified factors, initial encounter; Y92.9 Unspecified place or not applicable; I10 Essential (primary) hypertension; I25.2 Old myocardial infarction; G57.33 Lesion of lateral popliteal nerve, bilateral lower limbs; J44.9 Chronic obstructive pulmonary disease, unspecified; Z72.0 Tobacco use; K21.9 Gastro-esophageal reflux disease without esophagitis; E11.9 Type 2 diabetes mellitus without complications; Z79.84 Long term (current) use of oral hypoglycemic drugs; M19.90 Unspecified osteoarthritis, unspecified site; G20 Parkinson's disease
CPT/HCPCS: A9270-GY; J0330; J0360; J0690; J1100; J2250; J2405; J2704; J2765; J3010

== ENCOUNTER 2018-12-04 11:14 | Emergency (ER) | payer OTHER ==
[2018-12-04] MEDS ORDERED: NS 0.9% 1000 ML** 1,000 ML IV ONE ×3 (12:17→16:16)
--- NOTE | 2018-12-04 12:28 | ED ---
Neurological HPI - HPI Summary HPI Summary: A 53 y/o male presents to [facility] with a chief complaint of weakness/dizziness today. He notes that he has been out in the sun on his knees yesterday and this morning. He has some redness on his knees. He was diaphoretic and said he was working outside in the heat all day yesterday and today. He denies any abdominal pain but reports left arm pain that radiates up to his shoulder and neck area. He reports numbness in his left elbow that is worsened when he moves it towards his chest. He reportedly had difficulty walking from the parking lot to the ED today. His blood pressure is currently lower than his baseline. He has a Hx of HTN, DM and CT. He says that he takes his medications. His asbestos remover is Dr. Bustillos. He smokes 1/2 ppd. - History of Current Complaint Chief Complaint: EDWeakness Stated Complaint: DIZZY/WEAK PER PT Time Seen by Provider: 12/04/18 12:16 Hx Obtained From: Patient Onset/Duration: Sudden Onset, Started hours ago, Still Present Timing: Constant Onset Severity: Mild Current Severity: None Pain Intensity: 0 Pain Scale Used: 0-10 Numeric Character: Weak Aggravating: Exertion Alleviating: Nothing Associated Signs and Symptoms: Positive: Numbness - left elbow, Diaphoresis, Chest Pain. Negative: Fever - Additional Pertinent History Primary Care Physician: [id number] - Allergy/Home Medications Allergies/Adverse Reactions: Allergies Allergy/AdvReac Type Severity Reaction Status Date / Time loratadine Allergy Severe Hives Verified 10/05/18 09:13 bupropion Allergy Intermediate Rash And Verified 10/05/18 09:13 Itching PMH/Surg Hx/FS Hx/Imm Hx Endocrine/Hematology History: Denies: Hx Diabetes Cardiovascular History: Reports: Hx Hypertension, Hx Myocardial Infarction - ? [place] 1986 Denies: Hx Angina, Hx Pacemaker/ICD Respiratory History: Reports: Hx Chronic Obstructive Pulmonary Disease (COPD), Hx Sleep Apnea Denies: Hx Asthma GI History: Reports: Hx Gastroesophageal Reflux Disease, Hx Hiatal Hernia, Hx Ulcer - HX OF IN THE PAST History: Reports: Hx Kidney Stones Denies: Hx Renal Disease Musculoskeletal History: Reports: Hx Arthritis, Hx Gout, Other Musculoskeletal History - CYST REMOVED FROM BACK IN 1990 Sensory History: Reports: Hx Contacts or Glasses - READING GLASSES Denies: Hx Hearing Aid Opthamlomology History: Reports: Hx Contacts or Glasses - READING GLASSES Neurological History: Reports: Other Neuro Impairments/Disorders - gout, DDD Psychiatric History: Reports: Hx Depression - was told he is borderline depressed by his primary per pt Denies: Hx Panic Disorder - Cancer History Hx Chemotherapy: No - Surgical History Surgery Procedure, Year, and Place: TISSUE IN SACRAL AREA REMOVED-1990. [facility]ENOIDS. HEART CATH - NO STENTS. Lt knee - MMT Hx Anesthesia Reactions: No - Immunization History Date of Tetanus Vaccine: unk Date of Influenza Vaccine: none Infectious Disease History: No Infectious Disease History: Denies: Traveled Outside the [place] in Last 30 Days - Family History Known Family History: Positive: Cardiac Disease - Social History Alcohol Use: Rare Alcohol Amount: 6 PACK PER WEEK / 4 OUNCES OF VODKA PER WEEK Hx Substance Use: No Substance Use Type: Reports: None Substance Use Comment - Amount & Last Used: DOES RARELY Hx Tobacco Use: Yes Smoking Status (MU): Light Every Day Tobacco Smoker Type: Cigarettes Amount Used/How Often: 1 E-CIGARETTE, OCC. CIGARETTES- IN PROCESS OF QUITTING- SMOKER-38 YEARS Have You Smoked in the Last Year: Yes Review of Systems Positive: Skin Diaphoresis. Negative: Fever Positive: Chest Pain Positive: Shortness Of Breath Negative: Abdominal Pain Positive: Other - positive: pain left elbow radiating to shoulder and neck Neurological: Other - positive: dizziness Positive: Weakness, Numbness - left elbow All Other Systems Reviewed And Are Negative: Yes Physical Exam - Summary Physical Exam Summary: GENERAL: Patient is a well-developed and nourished M who is lying comfortable in the stretcher. Patient is not in any acute respiratory distress. HEAD AND FACE: Normocephalic EYES: PERRLA, EOMI x 2. EARS: Hearing grossly intact. MOUTH: Oropharynx within normal limits. NECK: Supple, trachea is midline, no adenopathy, no JVD, no carotid bruit. CHEST: Symmetric, reproducible pain in left chest wall area. LUNGS: Clear to auscultation bilaterally. No wheezing or crackles. CVS: Regular rate and rhythm, S1 and S2 present, no murmurs or gallops appreciated. ABDOMEN: Soft, non-tender. Bowel sounds are normal. No abnormal abdominal pulsations. EXTREMITIES: TTP along left elbow, limited ROM secondary to pain. NEURO: Alert and oriented x 3. No acute neurological deficits. Speech is normal and follows commands. SKIN: Dry and warm Triage Information Reviewed: Yes Vital Signs On Initial Exam: Initial Vitals Temp Pulse Resp BP Pulse Ox 98.4 F 89 20 127/77 95 12/04/18 11:15 12/04/18 11:15 12/04/18 11:15 12/04/18 11:15 12/04/18 11:15 Vital Signs Reviewed: Yes Diagnostics - Vital Signs Vital Signs Temp Pulse Resp BP Pulse Ox 12/04/18 11:15 98.4 F 89 20 127/77 95 - Laboratory Result Diagrams: 12/04/18 12:27 12/04/18 12:27 Lab Statement: Any lab studies that have been ordered have been reviewed, and results considered in the medical decision making process. - Radiology shoulder x-ray Radiology Interpretation Completed By: Radiologist Summary of Radiographic Findings: NO EVIDENCE OF FRACTURE. ED physician has reviewed this imaging report. elbow x-ray Radiology Interpretation Completed By: Radiologist Summary of Radiographic Findings: NO EVIDENCE FOR FRACTURE. ED physician has reviewed this imaging report. CXR Radiology Interpretation Completed By: Radiologist Summary of Radiographic Findings: Mild cardiomegaly. No compelling evidence for pulmonary edema or other acute cardiac or. pulmonary process. ED physician has reviewed this imaging report. - EKG 11:53 Cardiac Rate: NL - 79 bpm EKG Rhythm: Sinus Rhythm EKG Comparison: No Significant Change Summary of EKG Findings: EKG at 11:53 showed NSR 79 bpm, Q waves seen in anterior leads, similar to previous on 03/28/2016. Re-Evaluation - Re-Evaluation First Eval Re-Evaluation Time: 14:00 Change: Improved Comment: Pt feels much better after being given fluids. Course/Dx - Course Course Of Treatment: A 53 y/o male presents to [facility] with a chief complaint of weakness/dizziness today. He was diaphoretic and reports working all day yesterday and today outside in the heat. He denies any abdominal pain but reports left arm pain that radiates up to his shoulder and neck area. He reports numbness in his left elbow that is worsened when he moves it towards his chest. . The physical exam revealed that the patient is TTP along left elbow , has limited ROM secondary to pain and reproducible pain in left chest wall area. I think pain is most likely musculoskeletal based on exam. Shoulder x-ray impression: NO EVIDENCE OF FRACTURE. Elbow x-ray impression: NO EVIDENCE FOR FRACTURE. CXR impression: Mild cardiomegaly. No compelling evidence for pulmonary edema or other acute cardiac or. pulmonary process. In the ED course the patient was given Sodium Chloride IV. Blood work and chemistries obtained and are WNL Urine Protein 1+, Urine RBC 1+, Trace Urine ketones, Ur Squamous Epith Cells present. EKG at 11:53 showed NSR 79 bpm, Q waves seen in anterior leads, similar to previous on 03/28/2016. The patient will be discharged. I discussed results with patient, and he reports feeling much better . He is hemodynamically stable and safe for discharge. Strict return precautions given and he will otherwise follow up with his PCP. - Diagnoses Provider Diagnoses: Dehydration Discharge - Sign-Out/Discharge Documenting (check all that apply): Patient Departure - DC Patient Received Moderate/Deep Sedation with Procedure: No - Discharge Plan Condition: Stable Disposition: HOME Patient Education Materials: Dehydration (ED) Referrals: Shira Rivas MD [Primary Care Provider] - (1-3 days) Additional Instructions: Follow up with your primary care physician in 1-3 days. RETURN TO THE EMERGENCY DEPARTMENT FOR CHANGING OR WORSENING SYMPTOMS. - Billing Disposition and Condition Condition: STABLE Disposition: Home - Attestation Statements Document Initiated by Jesse: Yes Documenting Scribe: Puma Griffin Provider For Whom Jesse is Documenting (Include Credential): Kirti Scanlon MD Scribe Attestation: I, Puma Griffin, scribed for Kirti Scanlon MD on 12/04/18 at 2032. Scribe Documentation Reviewed: Yes Provider Attestation: The documentation as recorded by the Puma baker accurately reflects the service I personally performed and the decisions made by me, Norma Scanlon MD Status of Scribe Document: Viewed
[2018-12-04 12:43] LABS: ABS Basophils 0.1 10^3/ul (0-0.2); ABS Eosinophils 0.3 10^3/ul (0-0.6); ABS Lymphocytes 1.7 10^3/ul (1.0-4.8); ABS Monocytes 0.8 10^3/ul (0-0.8); ABS Neutrophils 5.7 10^3/ul (1.5-7.7); Eosinophil % 3.8 %; Hematocrit 49 % (42-52); Hemoglobin 17.1 g/dL (14.0-18.0); Lymphocyte % 19.6 %; Mean Corpuscular HGB Conc 35 g/dL (31-36); Mean Corpuscular Hemoglobin 31 pg (27-31); Mean Corpuscular Volume 90 fL (80-94); Mean Platelet Volume 7.3 fL (7.4-10.4); Platelet Count 260 10^3/uL (150-450); Red Blood Count 5.46 10^6 /uL (4.18-5.48); Red Cell Distribution Width 14 % (10-15); White Blood Count 8.6 10^3/uL (3.5-10.8)
[2018-12-04 13:00] LABS: Albumin/Globulin Ratio 1.4 (1-3); BUN/Creatinine Ratio 25.6 (8-20); Calcium 9.2 mg/dL (8.6-10.3); EGFR African American 75.9 (>60); EGFR Non-African American 62.7 (>60); Globulin 2.9 g/dL (2-4); Magnesium 1.9 mg/dL (1.9-2.7); Potassium 3.8 mmol/L (3.5-5.0); Total Bilirubin 0.9 mg/dL (0.2-1.0); Total Protein 6.9 g/dL (6.4-8.9)
[2018-12-04] MEDS ORDERED: Albuterol/Ipratropium NEB.SOL* Albuterol 2.5 MG/Ipratropium 0.5 MG 3 ML INH ONE (14:10)
[2018-12-04 15:04] LABS: Urine Appearance Clear; Urine Bacteria Absent (Absent); Urine Bilirubin Negative (Negative); Urine Blood Negative (Negative); Urine Color Amber; Urine Glucose Negative (Negative); Urine Ketones Trace (Negative); Urine Nitrite Negative (Negative); Urine Protein 1+(30 mg/dL) (Negative); Urine Red Blood Cell 1+(3-5/hpf) (Absent); Urine Specific Gravity 1.032 (1.010-1.030); Urine Squamous Epithelial Cell Present (Absent); Urine Urobilinogen Negative (Negative); Urine White Blood Cell Trace(0-5/hpf) (Absent)
[2018-12-04 18:01] VITALS: BP 120/76
== END 2018-12-04 18:01 | disposition home or self-care (01) ==
LOC: ED 11:14
DX: E86.0 Dehydration (principal); I10 Essential (primary) hypertension; E11.9 Type 2 diabetes mellitus without complications; I25.2 Old myocardial infarction; J44.9 Chronic obstructive pulmonary disease, unspecified; K21.9 Gastro-esophageal reflux disease without esophagitis; F17.210 Nicotine dependence, cigarettes, uncomplicated; Z79.899 Other long term (current) drug therapy; Z88.8 Allergy status to other drugs, medicaments and biological substances
CPT/HCPCS: 36415; 71046; 80053; 81003; 81015; 82550; 83735; 84484; 85025; 87086; 93005; 96360; 96361; 99284

== ENCOUNTER 2019-04-05 10:50 | Day surgery (SDC) | payer OTHER ==
[~2019-04-05 10:50] MED LIST changes: +Famotidine IV* 10 MG/ML 2 ML (20 mg) IV ONE; -Famotidine TAB* 20 MG ONE; -Famotidine TAB* 20 MG PO ONE; -Lidocaine 2% PF * 5 ML VIAL ONE; -Metoclopramide IV* 5 MG/ML 2 ML VIAL IV SLOW PU ONE; -Metoclopramide IV* 5 MG/ML 2 ML VIAL ONE; -Midazolam* 1 MG/ML 2 ML VIAL (2 MG) ONE; +Midazolam* 1 MG/ML 5 ML VIAL (5 MG) ONE; -Propofol* 10 MG/ML 20 ML BTL ONE; -ceFAZolin 1 GM in Dextrose (*) 1 GM/50 ML BAG IVPB ONE; -ceFAZolin 2 GM PREMIX in ORs 2 GM/50 ML BAG IVPB ONE; -fentaNYL* 50 MCG/ML 2 ML VIAL (100 MCG VIAL) ONE
[2019-04-05] MEDS ORDERED: Famotidine IV* 10 MG/ML 2 ML (20 mg) ONE (11:17)
[2019-04-05] MEDS ORDERED: ceFAZolin 2 GM in NS PREMIX(*) 2 GM/100 ML BAG IVPB ONE (11:17)
[2019-04-05] MEDS ORDERED: Bupivacaine 0.25% SDV PF* 10 ML VIAL INJ ONE (15:31)
[2019-04-05] MEDS ORDERED: fentaNYL* 50 MCG/ML 2 ML VIAL (100 MCG VIAL) ONE ×2 (15:56→16:17)
[2019-04-05] MEDS ORDERED: Rocuronium* 10 MG/ML VIAL ONE (16:09)
[2019-04-05] MEDS ORDERED: fentaNYL* 50 MCG/ML 5 ML VIAL (250 MCG VIAL) ONE (16:23)
[2019-04-05] MEDS ORDERED: Propofol* 10 MG/ML 20 ML BTL ONE (16:24)
[2019-04-05] MEDS ORDERED: Ketorolac INJ* 30 MG/ML 1 ML VIAL ONE (16:24)
[2019-04-05] MEDS ORDERED: Dexamethasone IV* 4 MG/ML 1 ML (4 MG) ONE (16:24)
[2019-04-05] MEDS ORDERED: Lidocaine 2% PF * 5 ML VIAL ONE (16:24)
[2019-04-05] MEDS ORDERED: Ondansetron INJ* 2 MG/ML VIAL ONE (16:24)
[2019-04-05] MEDS ORDERED: Naloxone* 0.4 MG/ML 1 ML VIAL IV PRN (17:16)
[2019-04-05] MEDS ORDERED: DiMENhydriNATE IV* 50 MG/ML VIAL IV PUSH PRN (17:16)
[2019-04-05] MEDS: HYDROmorphone INJ1* 1 MG/ML SYRINGE IV PRN ×5 (17:23→17:48)
[2019-04-05] MEDS ORDERED: HYDROmorphone INJ1* 1 MG/ML SYRINGE ONE (17:23)
[2019-04-05] MEDS ORDERED: oxyCODONE/Acetamin 5/325 MG* TAB ONE (18:03)
[2019-04-05] MEDS: oxyCODONE/Acetamin 5/325 MG* TAB PO PRN ×2 (18:08→18:09)
[2019-04-05 19:14] VITALS: BP 152/84
--- NOTE | 2019-04-05 23:29 | OP ---
DATE OF OPERATION: 04/05/19 - [facility] DATE OF : 65 SURGEON: Mario Cevallos MD PRE-OP DIAGNOSIS: Umbilical hernia. POST-OP DIAGNOSIS: Umbilical hernia. OPERATIVE PROCEDURE: Robotic umbilical hernia repair with mesh. INDICATIONS: Umbilical hernia. Risks included, but not limited to, bleeding, infection, injury to intraabdominal contents including the bowel, recurrence of the hernia explained to the patient, who seemed to understand, agreed to the procedure, and all questions were answered. DESCRIPTION OF PROCEDURE: The patient was taken to the operating room, placed supine. Preoperative antibiotics were given. After a successful induction of general endotracheal anesthesia, the abdomen was prepped and draped in sterile fashion. A left upper quadrant trocar was placed under direct visualization of the camera using a bladeless Optiview trocar. Pneumoperitoneum was achieved to 15 mmHg. Camera was placed in the abdomen. The abdomen was scanned. There was no obvious injury from trocar placement. An 8-mm trocar was placed 10 cm to the patient's right, proximally in the midline and then the third in the straight line in the right upper quadrant under direct visualization of the camera. The 5-mm trocar was replaced with an 8-mm trocar. A 6.5-cm circular Ventralex mesh was then passed through the trocars under direct visualization of the camera along with 2 sutures. The robot was brought and then docked. The peritoneum was taken down and the fat was removed from the umbilicus. The hernia sac was removed. The defect was closed with a running 0 PDS suture, Stratafix. The Stratafix suture was then tacked to the mesh and the mesh was brought up to anterior abdominal wall with the mesh side against the wall and the bowel side against the bowel, but in the peritoneal pocket, which would be covered. It was then sutured in a [place] around the mesh using this 0 PDS suture, suturing the mesh to the anterior abdominal wall in circumference. The needle was removed and a 3-0 V-Loc suture was used to close the peritoneum, so the mesh was completely closed. The mesh was completely covered. The abdomen was scanned. There was no obvious injury noted. The instruments were removed. The pneumoperitoneum was released. The trocars were removed. The skin was closed with Monocryl and glue. The patient tolerated the procedure well. He was extubated and taken to the Recovery in stable condition. [id number]/[facility] #: [id number] KEVIN
== END 2019-04-05 19:04 | disposition home or self-care (01) ==
LOC: OR 10:50
PROVIDERS: ATTEND Surgery
DX: K42.9 Umbilical hernia without obstruction or gangrene (principal); G20 Parkinson's disease; E11.8 Type 2 diabetes mellitus with unspecified complications; I10 Essential (primary) hypertension; M79.7 Fibromyalgia; K21.9 Gastro-esophageal reflux disease without esophagitis; G47.33 Obstructive sleep apnea (adult) (pediatric); F41.8 Other specified anxiety disorders; F17.210 Nicotine dependence, cigarettes, uncomplicated; Z87.442 Personal history of urinary calculi; Z79.891 Long term (current) use of opiate analgesic
CPT/HCPCS: A9270-GY; C1781; J0690; J1100; J1170; J1885; J2250; J2405; J2704; J3010; J3490

== ENCOUNTER 2019-05-14 13:29 | Emergency (ER) | payer OTHER ==
--- OUTSIDE RECORDS SUMMARY | 2019-05-14 13:37 | XMS REPORT | Continuity of Care Document ---
:1965 External Reference #:[id number] Author Name Mario Cevallos MD (transmitted by agent of provider Mp Dunbar) Address [address] [place] [id number] Care Team Providers Name Role Phone [facility] [facility] - Care Team Information Camera Machinist [employer] Law Clerk Yogi Cárdenas MD - Ophthalmology Care Team Information Camera Machinist [facility] - Care Team Information Camera Machinist Mental Health Lindsay Sheridan MD - Internal Medicine Care Team Information Camera Machinist Problems Active Problems Provider Date Essential hypertension Eduardo Mendez M.D. Onset: 06/16/2014 Snoring Eduardo Mendez M.D. Onset: 06/16/2014 Tobacco user Eduardo Mendez M.D. Onset: 06/16/2014 Note: Quit 08/30/2018 Dyssomnia Keesha Christianson MD Onset: 08/05/2014 Morbid obesity Keesha Christianson MD Onset: 08/05/2014 Erythrocytosis Eduardo Mendez M.D. Onset: 08/08/2014 Obstructive sleep apnea syndrome Eduardo Mendez M.D. Onset: 08/08/2014 Current tear of medial cartilage AND/OR Henry Levine M.D. Onset: 2014 meniscus of knee Complex tear of medial meniscus, current Henry Levine M.D. Onset: 2015 injury, left knee, subsequent encounter Bucket-handle tear of medial meniscus, Saad Blanca M.D. Onset: 2015 current injury, right knee, subsequent encounter Chronic obstructive lung disease Saad Blanca M.D. Onset: 04/22/2016 Mild recurrent major depression Saad Blanca M.D. Onset: 04/22/2016 Diplopia Saad Blanca M.D. Onset: 05/09/2016 Obesity Saad Blanca M.D. 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 Onset: 03/18/2017 Gout Saad Blanca M.D. Onset: 04/25/2017 Thoracic and lumbosacral neuritis Henry Levine M.D. Onset: 06/11/2017 Degeneration of lumbar intervertebral disc Martin Bustillo M.D. Onset: 2017 Peripheral vascular disease Martin Bustillo M.D. Onset: 07/16/2017 Type 2 diabetes mellitus Saad Blanca M.D. Onset: 07/28/2017 Dermatophytosis Saad Blanca M.D. Onset: 08/28/2017 Mixed hyperlipidemia Saad Blanca M.D. Onset: 08/28/2017 Gastroesophageal reflux disease Saad Blanca M.D. Onset: 12/02/2017 Knee pain Henry Levine M.D. Onset: 08/26/2018 Complex tear of medial meniscus, current Henry Levine M.D. Onset: 2018 injury, right knee, subsequent encounter Derangement of medial meniscus Henry Levine M.D. Onset: 11/25/2018 Social History Type Date Description Comments Sex Unknown Tobacco Use Start: Unknown End: Former Cigarette 30 years, 3 years Smoker 1 Pack Daily 1/2 ppd ETOH Use Drinks 2 Alcoholic 2 times, 2-4 drinks Beverages Per Week per time Recreational Drug Use Former Drug User Marijuana every day since age 13 until 35 Tobacco Use Start: Unknown Patient is a current smoker, smokes every day Smoking Status Reviewed: 04/13/19 Patient is a current smoker, smokes every day Exercise Type/Frequency Exercises regularly Stretches, etc. Allergies, Adverse Reactions, Alerts Active Allergies Reaction Severity Comments Date Claritin 06/16/2014 Bupropion visual disturb. Moderate 05/17/2016 Medications Active Medications SIG Qnty Indications Ordering Date Provider Aspirin Adult Every Day 10tabs Unknown 10/05/2018 325mg Tablets Valsartan 1 by mouth every 90tabs I10 Mahnaz Mai, 10/02/2018 320mg day [employer] DRAFTSPERSON Tablets Cpap Mask And cpap supplies - 1units G47.33 Lindsay Sheridan MD 09/24/2018 Supplies headgear, cushion, Device tubing, filters, for sleep apnea dx 780.57 Blood Pressure take bp 1-2x daily 1units Lindsay Sheridan MD 09/15/2018 Monitor Automatic With Large Cuff Kit Knee Brace one brace as 1units S83.231D Henry Levine, 09/09/2018 Misc needed for right M.D. knee Lumbar Back one brace as S83.231D Henry Levine, 09/09/2018 Brace/Supportpad/Ad needed for M.D. justable support, pain Misc Nicorette Chew 1 piece of 510units Christine Saldaña MD 08/26/2018 4mg Gum gum every 1-2 hours, max of 24 pieces of gum. Please dispense winter mint or cool mint flavor. BD Pen use one needle 100units E11.9 Nelida 06/08/2018 Needle/Micro/Ultra- daily for Will M.DRubi Fine/32G X 6mm injection 32G X 6 mm Misc Atorvastatin 1 by mouth every 90tabs E11.9 Qutaybeh S. 06/03/2018 Calcium day Elizabeth Bustillos 40mg Tablets Freestyle Lancets 2 times daily and 100units E11.9 Newton 07/28/2017 as needed Elizabeth Blanca Misc Freestyle Lite Test test up to 2 times 100units E11.9 Newton 07/28/2017 a day and as Elizabeth Blanca Strips needed Freestyle Lite check fingerstick 1units E11.9 Newton 07/28/2017 Blood Glucose twice daily and as Elizabeth Blanca Monitoring System needed Device Gabapentin 1 by mouth 3 x 60caps Henry Levine, 06/11/2017 300mg daily M.D. Capsules Naproxen twice a day with 120tabs M25.559 Lindsay Sheridan MD 05/22/2017 375mg food Tablets Allopurinol 1 by mouth every 90tabs M10.9 Lindsay Sheridan MD 04/25/2017 100mg day Tablets Ropinirole HCL 1 tablet daily in 90tabs F51.4 Lindsay Sheridan MD 03/03/2017 the evening 0.5mg Tablets Symbicort 2 puff twice a day 30.6gm J44.9 Saad 04/05/2016 Elizabeth Blanca 160-4.5mcg/Act Aerosol Omeprazole 1 by mouth every 90caps Lindsay Sheridan MD 20mg day ([facility]) Capsules DR Salcedo 1 cartridges every Unknown 10mg 2 hours as needed Inhaler ([facility]) Ventolin HFA inhale 2 puffs by 8gm Christine Saldaña MD mouth every 4 108(90Base) mcg/Act hours as needed Aerosol Clotrimazole apply twice daily B35.9 Unknown 1% Cream History Medications Oxycodone HCL 1/2 to one 20caps M23.203 Henry Levine, 11/25/2018 - 5mg tablets every 6 M.D. 03/02/2019 Capsules hours as needed for pain Medications Administered in Office Medication SIG Qnty Indications Ordering Provider Date Depomedrol 80MG Henry Levine M.D. 01/03/2015 Injection Immunizations CPT Code Status Date Vaccine Reaction Lot # [id number] Given 03/02/2019 Tdap - No immediate reaction [id number] Tetanus/Diptheria/Acellular Pertussis 76869 Given 07/26/2016 Pneumonia Vaccine Vital Signs Date Vital Result Comment 04/13/2019 9:19am Heart Rate 72 /min BP Systolic Sitting 138 mmHg BP Diastolic Sitting 78 mmHg Respiratory Rate 16 /min Body Temperature 97.6 F 03/10/2019 2:24pm Heart Rate 72 /min BP Systolic 140 mmHg BP Diastolic 82 mmHg Respiratory Rate 20 /min Body Temperature 97.7 F Results Test Acquired Facility Test Result H/L Range Note Date Laboratory test 04/05/2019 [facility] Point of Care 93 mg/dL Normal 70-100 [address] [place] [address] [phone] Laboratory test 04/05/2019 [facility] Point of Care 98 mg/dL Normal 70-100 [address] [place] [address] [phone] Urine 03/02/2019 [facility] Ur Microalbumin 27.2 mg/L Microalbumin [address] (mg/L) [place] [address] [phone] Urine Creatinine 150.10 mg/dL Urine Microalbumin/Creatinine 18.1 Normal <31 Laboratory test 03/02/2019 [facility] Hemoglobin A1c 6.1 % High 4.0-5.[address] (Glyco HGB) [place] [address] [phone] Urine 12/10/2018 [facility] Ur Microalbumin < 15.0 [address] (mg/L) mg/[place] [address] [phone] Urine Creatinine 163.20 mg/dL Urine Microalbumin/Creatinine TNP <31 5 Laboratory test 12/04/2018 [facility] Troponin-I (TnI) 0.00 ng/ mL <0.[address] [place] [address] [phone] Urinalysis 12/04/2018 [facility] Urine Color Yolanda Profile [address] [place] [address] [phone] Urine Appearance Clear Urine Specific [place] 1.032 High 1.010-1.030 Urine pH 5.0 Normal 5-9 Urine Urobilinogen Negative Negative Urine Ketones Trace Abnormal Negative Urine Protein 1+(30 mg/dL) Abnormal Negative Urine Leukocytes Negative Negative Urine Blood Negative Negative Urine Nitrite Negative Negative Urine Bilirubin Negative Negative Urine Glucose Negative Negative Urine White Blood Cell Trace(0-5/hpf) Absent Urine Red Blood Cell 1+(3-5/hpf) Abnormal Absent Urine Bacteria Absent Absent Urine Squamous Epithelial Cell Present Abnormal Absent Urine Culture And 12/04/2018 [facility] Urine SEE RESULT [address] [place] [address] [phone] CBC Auto Diff 12/04/2018 [facility] White Blood 8.6 10^3/uL Normal 3.5-[address] Count 0.8 [place] [address] [phone] Red Blood Count 5.46 10^6/uL Normal 4.18-5.48 Hemoglobin 17.1 g/dL Normal 14.0-18.0 Hematocrit 49 % Normal 42-52 Mean Corpuscular Volume 90 fL Normal 80-94 Mean Corpuscular Hemoglobin 31 pg Normal 27-31 Mean Corpuscular HGB Conc 35 g/dL Normal 31-36 Red Cell Distribution Width 14 % Normal 10-15 Platelet Count 260 10^3/uL Normal 150-450 Mean Platelet Volume 7.3 fL Low 7.4-10.4 Abs Neutrophils 5.7 10^3/uL Normal 1.5-7.7 Abs Lymphocytes 1.7 10^3/uL Normal 1.0-4.8 Abs Monocytes 0.8 10^3/uL Normal 0-0.8 Abs Eosinophils 0.3 10^3/uL Normal 0-0.6 Abs Basophils 0.1 10^3/uL Normal 0-0.2 Abs Nucleated RBC 0.0 10^3/uL Granulocyte % 66.1 % Lymphocyte % 19.6 % Monocyte % 9.8 % Eosinophil % 3.8 % Basophil % 0.7 % Nucleated Red Blood Cells % 0.0 Comp Metabolic 12/04/2018 [facility] Sodium 137 mmol/L Normal 135-145 Panel [address] [place] [address] [phone] Potassium 3.8 mmol/L Normal 3.5-5.0 Chloride 104 mmol/L Normal 101-111 Co2 Carbon Dioxide 26 mmol/L Normal 22-32 Anion Gap 7 mmol/L Normal 2-11 Glucose 132 mg/dL High 70-100 Blood Urea Nitrogen 31 mg/dL High 6-24 Creatinine 1.21 mg/dL High 0.67-1.17 BUN/Creatinine Ratio 25.6 High 8-20 Calcium 9.2 mg/dL Normal 8.6-10.3 Total Protein 6.9 g/dL Normal 6.4-8.9 Albumin 4.0 g/dL Normal 3.2-5.2 Globulin 2.9 g/dL Normal 2-4 Albumin/Globulin Ratio 1.4 Normal 1-3 Total Bilirubin 0.90 mg/dL Normal 0.2-1.0 Alkaline Phosphatase 64 U/L Normal 34-104 Alt 26 U/L Normal 7-52 Ast 21 U/L Normal 13-39 Egfr Non- 62.7 >60 Egfr 75.9 >60 8 Laboratory test 12/04/2018 [facility] Magnesium 1.9 mg/dL Normal 1.9-2.7 [address] [facility] [place] [address] [phone] Creatine Kinase(CK) 182 U/L Normal 10-223 Troponin-I (TnI) 0.00 ng/mL <0.04 9 1 Quill Picking Machine Operator: [id number] 2 Quill Picking Machine Operator: [id number] 3 Therapeutic target for the treatment of diabetes mellitus patients is <7% HBA1C, and in selective patients <6.0%. Please refer to [place] [employer] diabetic care guidelines for further information. 4 [id number] 5 Unable to calculate due to low microalbumin 6 Troponin-I testing on Plasma Separator Tubes (PST) has a known false positive rate of 0.20-0.40%. All positive troponins reflex immediately to secondary confirmatory testing. Using the [employer] DxI 800 Access Immunoassay systems, the 99th percentile upper reference limit was demonstrated to be < 0.03 ng/mL. 7 SEE RESULT BELOW Name: GAGANDEEP MORALES SR : [address]: Norma Scanlon MD Acct: [id number] Unit: [id number] AGE: 53 Location: ED Re12/04/18 SEX: M Status: DEP ER SPEC: [id number] NANETTE: 12/04/[address] [facility] [address]: Lourdes Arriaga MD REQ: [id number] RECD: 12/04/18 STATUS: COMP [facility] DR: Shira Scanlon MD _ SOURCE: URINE SPDESC: ORDERED: Urine Culture Procedure Result Reported Site Urine Culture Final 12/05/18- 1203 ML No Growth (<1,000 CFU/mL) * ML - Main Lab . END OF REPORT DEPARTMENT OF PATHOLOGY, [address] [place] [address] Anthony Jackman M.D. Director [facility] # [id number] 8 Because ethnic data is not always readily [...] 15-29 5 Kidney failure <15 (or dialysis) 9 Troponin-I testing on Plasma Separator Tubes (PST) has a known false positive rate of 0.20-0.40%. All positive troponins reflex immediately to secondary confirmatory testing. Using the [employer] DxI Drive.SG Access Immunoassay systems, the 99th percentile upper reference limit was demonstrated to be < 0.03 ng/mL. Procedures Date Code Description Status 04/05/2019 35462 Laps Repair Hernia Except Incal/Ingun Reducible Completed 08/14/2017 173522536 Diabetic Retinal Eye Exam Completed 08/30/2016 [id number] Colonoscopy Completed Medical Devices Description No Information Available Encounters Type Date Location Provider Dx Diagnosis Office Visit 03/10/2019 Surgical Mario Garcia K42.9 Umbilical hernia 2:[facility]p [facility] MD without obstruction or gangrene Office Visit 03/02/2019 [facility] Internal Lindsay Sheridan MD Z00.01 Encounter for 3:00p Medicine - [facility] general adult medical exam w abnormal findings I10 Essential (primary) hypertension E11.9 Type 2 diabetes mellitus without complications M10.9 Gout, unspecified Z12.11 Encounter for screening for malignant neoplasm of colon Z23 Encounter for immunization K42.9 Umbilical hernia without obstruction or gangrene Office Visit 12/10/2018 4:00p [facility] Manuel Sheridan MD E86.0 Dehydration Medicine - [facility] I10 Essential (primary) hypertension F17.210 Nicotine dependence, cigarettes, uncomplicated E11.9 Type 2 diabetes mellitus without complications Office Visit 10/14/2018 2:30p [facility] Nurse Visit I10 Essential (primary) cc hypertension Assessments Date Code Description Provider 04/05/2019 K42.9 Umbilical hernia without obstruction Mario Cevallos MD or gangrene 03/10/2019 K42.9 Umbilical hernia without obstruction Mario Cevallos MD or gangrene 03/02/2019 Z00.01 Encounter for general adult medical Lindsay Sheridan MD examination with abnormal findings 03/02/2019 I10 Essential (primary) hypertension Lindsay Sheridan MD 03/02/2019 E11.9 Type 2 diabetes mellitus without Lindsay Sheridan MD complications 03/02/2019 M10.9 Gout, unspecified Lindsay Sheridan MD 03/02/2019 Z12.11 Encounter for screening for malignant Lindsay Sheridan MD neoplasm of colon 03/02/2019 Z23 Encounter for immunization Lindsay Sheridan MD 03/02/2019 K42.9 Umbilical hernia without obstruction Lindsay Sheridan MD or gangrene 12/10/2018 E86.0 Dehydration Lindsay Sheridan MD 12/10/2018 I10 Essential (primary) hypertension Lindsay Sheridan MD 12/10/2018 F17.210 Nicotine dependence, cigarettes, Lindsay Sheridan MD uncomplicated 12/10/2018 E11.9 Type 2 diabetes mellitus without Lindsay Sheridan MD complications 11/25/2018 Z47.89 Encounter for other orthopedic Dana Wellsophie, PA aftercare 11/25/2018 M23.203 Derangement of unspecified medial Henry Levine M.D. meniscus due to old tear o 11/25/2018 M23.203 Derangement of unspecified medial Dana Wellsophie, PA meniscus due to old tear o 10/14/2018 Z47.89 Encounter for other orthopedic Henry Levine M.D. aftercare 10/14/2018 I10 Essential (primary) hypertension Truman Bustillos M.D. 10/14/2018 I10 Essential (primary) hypertension Nurse Visit cc Plan of Treatment Future Appointment(s):05/04/2019 4:00 pm - Lindsay Sheridan [facility] at [facility] am - Janay Matson DNP, RN, MARINE DIESEL MECHANIC-BC at [facility] Functional Status Description No Information Available Mental Status Description No Information Available Referrals Refer to Dr Reason for Referral Status Appt Date Mario Cevallos MD Sent 03/10/2019 [facility] [place] [address] [phone]
--- OUTSIDE RECORDS SUMMARY | 2019-05-14 13:37 | XMS REPORT | Continuity of Care Document ---
:1965 External Reference #:[id number] Author Name Lindsay Sheridan MD (transmitted by agent of provider Dotty Ellis) Address [address] [place] [address] Care Team Providers Name Role Phone [facility] [employer] - Care Team Information Slabber [phone] Loss Prevention Manager Yogi Cárdenas MD - Ophthalmology Care Team Information Slabber [phone] [facility] - Care Team Information Slabber Mental Health Lindsay Sheridan MD - Internal Medicine Care Team Information Slabber Problems Active Problems Provider Date Essential hypertension [...] smoker, smokes every day Smoking Status Reviewed: 05/04/19 Patient is a current smoker, smokes every day Exercise Type/Frequency Exercises regularly Stretches, etc. Allergies, Adverse Reactions, Alerts Active Allergies Reaction Severity Comments Date Claritin 06/16/2014 Bupropion visual disturb. Moderate 05/17/2016 Medications Active Medications SIG Qnty Indications Ordering Date Provider Metformin HCL take one tablet by 60tabs E11.9 Lindsay Sheridan MD 05/04/2019 1000mg mouth twice a day Tablets Aspirin Adult Every Day 10tabs Unknown 10/05/2018 325mg Tablets Valsartan 1 by mouth every 90tabs I10 Mahnaz Mai, 10/02/2018 320mg day CUSTOMER CARE COORDINATOR Tablets Cpap Mask And cpap supplies - [...] one brace as S83.231D Henry Levine, 09/09/2018 Brace/Supportpad/Adj needed for M.D. ustable support, pain Misc Nicorette Chew 1 piece of 510units Christine Saldaña MD 08/26/2018 4mg Gum gum every 1-2 hours, max of 24 pieces of gum. Please dispense winter mint or cool mint flavor. Atorvastatin Calcium 1 by mouth every 90tabs E11.9 Lindsay Sheridan MD 2018 day 40mg Tablets Freestyle Lancets 2 times daily and 100units E11.9 [place] 07/28/2017 as needed [facility] Freestyle Lite Test test up to 2 times 100units E11.9 [place] 07/28/2017 a day and as Elizabeth Blanca Strips needed Freestyle Lite Blood check fingerstick 1units E11.9 [place] 07/28/2017 Glucose Monitoring twice daily and as Elizabeth Blanca System needed Device Gabapentin 1 by mouth 3 x 60caps Henry Levine, 06/11/2017 300mg daily M.D. Capsules Naproxen twice a day with 120tabs M25.559 Lindsay Sheridan MD 05/22/2017 375mg food Tablets Allopurinol 1 by mouth every 90tabs M10.9 Lindsay Sheridan MD 04/25/2017 100mg day Tablets Ropinirole HCL 1 tablet daily in 90tabs F51.4 Lindsay Sheridan MD 03/03/2017 0.5mg the evening Tablets Symbicort 2 puff twice a day 30.6gm J44.9 Lindsay Sheridan MD 04/05/2016 160-4.5mcg/Act Aerosol Omeprazole 1 by mouth every 90caps Lindsay Sheridan MD 20mg day ([facility] [place] Capsules DR Nicotrol 1 cartridges every Unknown 10mg Inhaler 2 hours as needed [place] [place] Ventolin HFA inhale 2 puffs by 8gm Lindsay Sheridan MD mouth every 4 108(90Base) mcg/Act hours [...] Code Status Date Vaccine Reaction Lot # [id number] Given 03/02/2019 Tdap - No immediate reaction [id number] Tetanus/Diptheria/Acellular Pertussis 94238 Given 07/26/2016 Pneumonia Vaccine Vital Signs Date Vital Result Comment 05/04/2019 3:57pm Height 69.5 inches 5'9.50" Weight 277.00 lb Heart Rate 88 /min BP Systolic 160 mmHg manual BP Diastolic 94 mmHg manual BP Systolic Sitting 158 mmHg machine BP Diastolic Sitting 96 mmHg machine Body Temperature 97.9 F O2 % BldC Oximetry 94 % BMI (Body Mass Index) 40.3 kg/m2 04/13/2019 9:19am Heart Rate 72 /min BP Systolic Sitting 138 mmHg BP Diastolic Sitting 78 mmHg Respiratory Rate 16 /min Body Temperature 97.6 F Results Test Acquired Facility Test Result H/L Range Note Date Laboratory test 04/05/2019 [facility] Point of Care 93 mg/dL Normal 70-100 [address] [place] [address] [phone] Laboratory test 04/05/2019 [facility] Point of Care 98 mg/dL Normal 70-100 [address] Glucose [place], [place] [id number] [phone] Urine 03/02/2019 [facility] Ur Microalbumin 27.2 mg/L Microalbumin [address] (mg/L) [place] [address] [phone] Urine Creatinine 150.10 mg/dL Urine Microalbumin/Creatinine 18.1 Normal <31 Laboratory test 03/02/2019 [facility] Hemoglobin A1c 6.1 % High 4.0-5.[address] (Glyco HGB) [place] [address] [phone] Urine 12/10/2018 [facility] Ur Microalbumin < 15.[address] (mg/L) mg/[place] [address] [phone] Urine Creatinine 163.20 mg/dL Urine Microalbumin/Creatinine TNP <31 5 Laboratory test 12/04/2018 [facility] Troponin-I (TnI) 0.00 ng/ mL <0.[address] [place] [address] [phone] Urinalysis 12/04/2018 [facility] Urine Color Yloanda Profile [address] [place] [address] [phone] Urine Appearance Clear Urine Specific [place] 1.032 High 1.010-1.030 Urine pH 5.0 Normal [...] Present Abnormal Absent Urine Culture And 12/04/2018 [facility] Urine SEE RESULT [address] [place] [address] [phone] CBC Auto Diff 12/04/2018 [facility] White Blood 8.6 10^3/uL Normal 3.5-[address] Count 0.8 [place] [address] [phone] Red Blood Count 5.46 10^6/uL Normal 4.18-5.48 [...] Blood Cells % 0.0 Comp Metabolic 12/04/2018 [facility] Sodium 137 mmol/L Normal 135-145 Panel [address] [place] [address] [phone] Potassium 3.8 mmol/L Normal 3.5-5.0 Chloride 104 [...] Egfr 75.9 >60 8 Laboratory test 12/04/2018 [facility] Magnesium 1.9 mg/dL Normal 1.9-2.[address] [place] [address] [phone] Creatine Kinase(CK) 182 U/L Normal 10-223 Troponin-I (TnI) 0.00 ng/mL <0.04 9 1 Procurement Buyer: [id number] 2 Procurement Buyer: [id number] 3 Therapeutic target for the treatment of diabetes mellitus patients is <7% HBA1C, and in selective patients <6.0%. Please refer to [place] [employer] diabetic care guidelines for further information. 4 [id number] 5 Unable to calculate due to low microalbumin 6 Troponin-I testing on Plasma Separator Tubes (PST) has a known false positive rate of 0.20-0.40%. All positive troponins reflex immediately to secondary confirmatory testing. Using the [employer]xI 800 Access Immunoassay systems, the 99th percentile upper reference limit was demonstrated to be < 0.03 ng/mL. 7 SEE RESULT BELOW Name: GAGANDEEP MORALES SR : [address]: Norma Scanlon MD Acct: [id number] Unit: [id number] AGE: 53 Location: ED Re12/04/18 SEX: M Status: DEP ER SPEC: [id number] NANETTE: 12/04/[address] [facility] [address]: Lourdes Arriaga MD REQ: [id number] RECD: 12/04/18 STATUS: [facility] DR: Shira Scanlon MD _ SOURCE: URINE [facility]: ORDERED: Urine Culture Procedure Result Reported Site Urine Culture Final 12/05/18- 1203 ML No Growth (<1,000 CFU/mL) * ML - Main Lab . END OF REPORT DEPARTMENT OF PATHOLOGY, [address] [place] [address] Anthony Jackman M.D. Director [facility] # [id number] 8 Because ethnic data is not always [...] immediately to secondary confirmatory testing. Using the [employer] Access Immunoassay systems, the 99th percentile upper reference limit was demonstrated to be < 0.03 ng/mL. Procedures Date Code Description Status 04/05/2019 60628 Laps Repair Hernia Except Incal/Ingun Reducible Completed 08/14/2017 [id number] Diabetic Retinal Eye Exam Completed 08/30/2016 [id number] Colonoscopy Completed Medical Devices Description No Information Available Encounters Type Date Location Provider Dx Diagnosis Office Visit 03/10/2019 Surgical Mario Garcia K42.9 Umbilical hernia 2:[facility] without obstruction or gangrene Office Visit 03/02/2019 [facility] Internal Lindsay Sheridan MD Z00.01 Encounter for 3:00p Medicine - [facility] general adult medical exam w abnormal findings I10 Essential (primary) hypertension E11.9 Type 2 diabetes mellitus without complications M10.9 Gout, unspecified Z12.11 Encounter for screening for malignant neoplasm of colon Z23 Encounter for immunization K42.9 Umbilical hernia without obstruction or gangrene Office Visit 12/10/2018 4:00p [facility] Internal Lindsay Sheridan MD E86.0 Dehydration Medicine - [facility] I10 Essential (primary) hypertension F17.210 Nicotine dependence, cigarettes, uncomplicated E11.9 Type 2 diabetes mellitus without complications Assessments Date Code Description Provider 05/04/2019 E11.9 Type 2 diabetes mellitus without Lindsay Sheridan MD complications 05/04/2019 I10 Essential (primary) hypertension Lindsay Sheridan MD 05/04/2019 M10.9 Gout, unspecified Lindsay Sheridan MD 05/04/2019 F17.210 Nicotine dependence, cigarettes, Lindsay Sheridan MD uncomplicated 04/13/2019 K42.9 Umbilical hernia without obstruction or Mario Cevallos MD gangrene 04/05/2019 K42.9 Umbilical hernia without obstruction or Mario Cevallos MD gangrene 03/10/2019 K42.9 Umbilical hernia without obstruction or Mario Cevallos MD gangrene 03/02/2019 Z00.01 Encounter for general adult medical Lindsay Sheridan MD examination with abnormal findings 03/02/2019 I10 Essential (primary) hypertension Lindsay Sheridan MD 03/02/2019 E11.9 Type 2 diabetes mellitus without Lindasy Sheridan MD complications 03/02/2019 M10.9 Gout, unspecified Lindsay Sheridan MD 03/02/2019 Z12.11 Encounter for screening for malignant Lindsay Sheridan MD neoplasm of colon 03/02/2019 Z23 Encounter for immunization Lindsay Sheridan MD 03/02/2019 K42.9 Umbilical hernia without obstruction or Lindsay Sheridan MD gangrene 12/10/2018 E86.0 Dehydration Lindsay Sheridan MD 12/10/2018 I10 Essential (primary) hypertension Lindsay Sheridan MD 12/10/2018 F17.210 Nicotine dependence, cigarettes, Lindsay Sheridan MD uncomplicated 12/10/2018 E11.9 Type 2 diabetes mellitus without Lindsay Sheridan MD complications 11/25/2018 Z47.89 Encounter for other orthopedic aftercare STEPHAN Valdez 11/25/2018 M23.203 Derangement of unspecified medial meniscus Henry Levine M.D. due to old tear o 11/25/2018 M23.203 Derangement of unspecified medial meniscus STEPHAN Valdez due to old tear o Plan of Treatment Future Appointment(s):05/18/2019 3:40 pm - Lindsay Sheridan MD at [facility] 10:30 am - Janay Matson DNP, RN, REIMBURSEMENT REPRESENTATIVE-BC at [facility]05/04/2019 - Lindsay Sheridan MDE11.9 Type 2 diabetes mellitus without complicationsNew Medication:Metformin HCL 1000 mg - take one tablet by mouth twice a dayI10 Essential (primary) hypertensionComments :Blood Pressure is elevated in office Continue to monitor it at homeFollow up:F/ U 2 npyibU42.9 Gout, rahpzqvofqdQ55.210 Nicotine dependence, cigarettes, uncomplicated Functional Status Description No Information Available Mental Status Description No Information Available Referrals Refer to Reason for Referral Status Appt Date Mario Cevallos MD Sent 03/10/2019 [facility] [place] [address] [phone]
[2019-05-14] MEDS ORDERED: cefTRIAXone VIAL(*) 1,000 MG VIAL IVPB ONE (15:40)
[2019-05-14] MEDS ORDERED: fentaNYL* 50 MCG/ML 2 ML VIAL (100 MCG VIAL) IV SLOW PU ONE (15:41)
[2019-05-14] MEDS ORDERED: Ketorolac INJ* 30 MG/ML 1 ML VIAL IV ONE (15:41)
[2019-05-14] MEDS ORDERED: cefTRIAXone(*) 2 GM in NS 0.9% 100 ML* 100 ML IVPB ONE (16:00)
--- NOTE | 2019-05-14 16:40 | ED ---
Throat Pain/Nasal Congestion - HPI Summary HPI Summary: This patient is a 54-year-old female presenting to the ED with dental pain. He states he was seen at urgent care last evening, given penicillin for a front dental tooth abscess. Today he arrives with swelling to the right maxillary sinus involving just under the eye with swelling and pain. He is endorsing a 10 /10 pain. He does have pain medications at home, however he states symptoms have not been improving with this. He has taken 3 doses of penicillin. Denies any fevers, sweats, chills. Continues to eat and drink okay. Denies any visual changes or disturbances. Denies any tearing or discoloration from the eye. Denies any erythema surrounding the eye or any swelling around the eye. - History of Current Complaint Chief Complaint: EDDentalPain Time Seen by Provider: 05/14/19 14:23 Hx Obtained From: Patient Onset/Duration: Sudden Onset Severity: Moderate Associated Signs And Symptoms: Positive: Negative - Epiglottits Risk Factors Epiglottis Risk Factors: Negative - Allergies/Home Medications Allergies/Adverse Reactions: Allergies Allergy/AdvReac Type Severity Reaction Status Date / Time bupropion Allergy Severe vision Verified 05/14/19 13:32 blurry loratadine Allergy Severe Hives Verified 05/14/19 13:32 Home Medications: Home Medications Atorvastatin* [Lipitor 40 MG*] 40 mg PO DAILY 05/14/19 [History Confirmed ] Naproxen [Naproxen 375 mg tab] 375 mg PO BID 05/14/19 [History Confirmed ] Oxycodone HCl 5 mg PO Q6H PRN 05/14/19 [History Confirmed 05/14/19] Penicillin VK 500 MG TAB(NF) [Penicillin VK 500 mg Tab] 500 mg PO QID 05/14/19 [ History Confirmed 05/14/19] PMH/Surg Hx/FS Hx/Imm Hx Previously Healthy: Yes Endocrine/Hematology History: Reports: Hx Diabetes - type 2 Cardiovascular History: Reports: Hx Hypertension, Hx Myocardial Infarction - ? [place] 1986, Hx Valvular Heart Disease - aortic valve Denies: Hx Angina, Hx Pacemaker/ICD Respiratory History: Reports: Hx Chronic Obstructive Pulmonary Disease (COPD), Hx Sleep Apnea Denies: Hx Asthma GI History: Reports: Hx Gastroesophageal Reflux Disease, Hx Hiatal Hernia, Hx Ulcer - HX OF IN THE PAST in late History: Reports: Hx Kidney Stones - when 35 years ols Denies: Hx Renal Disease Musculoskeletal History: Reports: Hx Arthritis, Hx Bursitis - left shoulder, Hx Gout, Hx Tendonitis - bilat elbows, Other Musculoskeletal History - CYST REMOVED FROM BACK IN 1990, psuedo gout Sensory History: Reports: Hx Contacts or Glasses - READING GLASSES Denies: Hx Hearing Aid Opthamlomology History: Reports: Hx Contacts or Glasses - READING GLASSES Neurological History: Reports: Hx Migraine - occassional 1-2 a years, Other Neuro Impairments/Disorders - gout, DDD, restless legs syndrome Psychiatric History: Reports: Hx Depression - was told he is borderline depressed by his primary per pt Denies: Hx Panic Disorder - Cancer History Hx Chemotherapy: No - Surgical History Surgery Procedure, Year, and Place: TISSUE IN SACRAL AREA REMOVED-1990. ADENOIDS. HEART CATH - NO STENTS. Lt knee - MMT. rt knee meniscus repair- 2018 Hx Anesthesia Reactions: No - Immunization History Date of Tetanus Vaccine: unk Date of Influenza Vaccine: none Hx Pertussis Vaccination: No Immunizations Up to Date: Yes Infectious Disease History: No Infectious Disease History: Denies: Traveled Outside the [place] in Last 30 Days - Family History Known Family History: Positive: Cardiac Disease - Social History Occupation: Employed Full-time Lives: With Family Alcohol Use: Occasionally Alcohol Amount: 6 PACK PER WEEK / 4 OUNCES OF VODKA PER WEEK Hx Substance Use: No Substance Use Type: Reports: None Substance Use Comment - Amount & Last Used: DOES RARELY Hx Tobacco Use: Yes Smoking Status (MU): Heavy Every Day Tobacco Smoker Type: Cigarettes Amount Used/How Often: 1 E-CIGARETTE,3-5 CIGARETTES per d- IN PROCESS OF QUITTING- SMOKER-38 YEARS Have You Smoked in the Last Year: Yes Review of Systems Negative: Fever, Chills, Fatigue, Skin Diaphoresis ENT: Other - R maxillary sinus tenderness Positive: Dental Pain Negative: Palpitations, Chest Pain Negative: Shortness Of Breath, Cough Skin: Negative All Other Systems Reviewed And Are Negative: Yes Physical Exam Triage Information Reviewed: Yes Vital Signs On Initial Exam: Initial Vitals Temp Pulse Resp BP Pulse Ox 97.7 F 77 15 186/106 95 05/14/19 13:30 05/14/19 13:30 05/14/19 13:30 05/14/19 13:30 05/14/19 13:30 Vital Signs Reviewed: Yes Appearance: Positive: Well-Appearing, Well-Nourished Skin: Positive: Warm, Skin Color Reflects Adequate Perfusion Head/Face: Positive: Normal Head/Face Inspection Eyes: Positive: EOMI, Conjunctiva Clear ENT: Positive: Other - right maxillary sinus tenderness without fluctuance Neck: Positive: Supple, No Lymphadenopathy Musculoskeletal: Positive: Strength/ROM Intact Procedures - Sedation Patient Received Moderate/Deep Sedation with Procedure: No Diagnostics - Vital Signs Vital Signs Temp Pulse Resp BP Pulse Ox 05/14/19 15:54 18 05/14/19 13:30 97.7 F 77 15 186/106 95 - Laboratory Lab Statement: Any lab studies that have been ordered have been reviewed, and results considered in the medical decision making process. EENT Course/Dx - Course Course Of Treatment: This patient is evaluated for swelling of the right maxillary sinus. He has only taken 3 doses of medication, penicillin, since last evening. Denies any fevers, sweats, chills. On physical examination, there is a small erythematous area to the front tooth, without obvious abscess. Pain to the right maxillary sinus without fluctuance. He is given IV ceftriaxone, a dose of fentanyl and Toradol while in the ED with good effect. He will be prescribed clindamycin. He will follow up with dentist this week. - Differential Diagnoses Differential Diagnoses: Other - sinus infection, dental infection, dental tenderness - Diagnoses Provider Diagnoses: Tooth abscess Discharge ED - Sign-Out/Discharge Documenting (check all that apply): Patient Departure - Discharge Plan Condition: Stable Disposition: HOME Prescriptions: Clindamycin Cap(NF) [Clindamycin Cap 300 mg Cap(NF)] 300 mg PO Q6H #20 cap Patient Education Materials: Dental Abscess (ED) Referrals: Lindsay Sheridan MD [Primary Care Provider] - Additional Instructions: Clindamycin four times daily x 5 days Start this medication tomorrow Continue with your penicillin Follow up with dentist if symptoms worsen, return to the ED - Billing Disposition and Condition Condition: STABLE Disposition: Home Images - Images Head: 1 - Swelling without erythema - Attestation Statements Provider Attestation: I was available for consultation for this patient. I did not evaluate the patient or participate in any medical decision making or disposition decisions unless I am specifically named in the chart as having consulted on the patient. If I have consulted on the patient, please see my own ED note on the patient encounter. Raudel Ramirez MD
[2019-05-14 16:56] VITALS: BP 148/95
== END 2019-05-14 16:55 | disposition home or self-care (01) ==
LOC: ED 13:29
DX: K04.7 Periapical abscess without sinus (principal); E11.9 Type 2 diabetes mellitus without complications; I10 Essential (primary) hypertension; I25.2 Old myocardial infarction; J44.9 Chronic obstructive pulmonary disease, unspecified; K21.9 Gastro-esophageal reflux disease without esophagitis; F17.210 Nicotine dependence, cigarettes, uncomplicated; Z87.442 Personal history of urinary calculi; Z79.899 Other long term (current) drug therapy; Z88.8 Allergy status to other drugs, medicaments and biological substances
CPT/HCPCS: 96365; 96375; 99282; J0696; J1885; J3010

== ENCOUNTER 2023-08-26 15:42 | Inpatient (IN) ==
[2023-08-26 16:17] LABS: PCO2 Arterial 43 mmHg (35-45); PO2 Arterial 74 mmHg (80-100)
[2023-08-26] MEDS: Albuterol/Ipratropium NEB.SOL (2.5/0.5 MG) 3 ML NEB.SOLN INH SCH (16:21)
[2023-08-26] MEDS: methylPREDNISolone SOD SUCC 125 mg 2 ML VIAL IV ONE (16:23)
[2023-08-26 16:25] LABS: ABS Lymphocytes 0.8 10^3/uL (1.0-4.8); ABS Monocytes 1.1 10^3/uL (0.0-1.1); ABS Neutrophils 8.8 10^3/uL (1.5-7.6); ABS Nucleated RBC 0.03 10^3/ul; Eosinophil % 0.3 %; Hematocrit 49.3 % (38-53); Hemoglobin 17.1 g/dL (13.2-16.3); Lymphocyte % 7.5 %; Mean Corpuscular Hemoglobin 31.9 pg (27-33); Mean Corpuscular Hgb Conc 34.8 g/dL (31-36); Mean Corpuscular Volume 91.7 fL (80-97); Mean Platelet Volume 6.8 fL (7.5-11.2); Nucleated Red Blood Cells % 0.2 %/100WBC (0.0-0.8); Platelet Count 218 10^3/uL (150-450); Red Blood Count 5.37 10^6/uL (4.06-5.63); Red Cell Distribution Width 14.1 % (12-17); White Blood Count 10.8 10^3/uL (3.6-10.2)
[2023-08-26 16:40] LABS: Activated Partial Thrombo Time 31.9 seconds (26.0-38.0); INR 1.14 (0.83-1.13)
[2023-08-26 17:48] LABS: Albumin 4.1 g/dL (3.2-5.2); Albumin/Globulin Ratio 1.5 (1-3); C Reactive Protein 83.95 mg/L (<8.01); Calcium 8.6 mg/dL (8.6-10.3); Creatinine, Serum 0.97 mg/dL (0.67-1.17); Globulin 2.8 g/dL (2-4); Potassium 4.1 mmol/L (3.5-5.0); Total Bilirubin 1.6 mg/dL (0.2-1.0); Total Protein 6.9 g/dL (6.4-8.9); eGFR CKD-EPI 90.5 (>60)
[2023-08-26 17:53] LABS: High Sensitivity Troponin 1 Hr 6 pg/mL (<20)
[2023-08-26] MEDS: cefTRIAXone 1 gm/50 mL D5W 1 GM/50 ML BAG IV ONE (18:11)
[2023-08-26] MEDS: Iodixanol (CONTRAST) 320 MG/ML 100 ML SDV IV ONE (19:04)
[2023-08-26] MEDS ORDERED: Al Hydrox/Mg Hydrox/Simet LIQ 30 ML UDC PO PRN (22:06)
[2023-08-26] MEDS ORDERED: Albuterol/Ipratropium NEB.SOL (2.5/0.5 MG) 3 ML NEB.SOLN INH PRN (22:36)
[2023-08-26] MEDS: Azithromycin 500 mg/250 ml NS 500 MG/250 ML BAG IVPB ONE (23:46)
[2023-08-26] MEDS: Enoxaparin 40 MG/0.4 ML SYR SUBCUT SCH (23:47)
[2023-08-26] MEDS: methylPREDNISolone SOD SUCC 40 mg/ml 1 ml VIAL IV SCH (23:47)
[2023-08-27] MEDS: guaiFENesin DM SUGAR FREE 100 MG/10 MG 5 ML UDC PO PRN (01:11)
[2023-08-27] MEDS ORDERED: Dextrose 50% Syringe 50 ml 25 GM/50 ML SYRINGE IV PUSH PRN (03:50)
[2023-08-27 05:10] LABS: ABS Lymphocytes 0.8 10^3/uL (1.0-4.8); ABS Monocytes 0.3 10^3/uL (0.0-1.1); ABS Neutrophils 8.2 10^3/uL (1.5-7.6); ABS Nucleated RBC 0.02 10^3/ul; Eosinophil % 0.2 %; Hematocrit 47.6 % (38-53); Hemoglobin 16.5 g/dL (13.2-16.3); Lymphocyte % 8.4 %; Mean Corpuscular Hemoglobin 31.6 pg (27-33); Mean Corpuscular Hgb Conc 34.6 g/dL (31-36); Mean Corpuscular Volume 91.5 fL (80-97); Nucleated Red Blood Cells % 0.2 %/100WBC (0.0-0.8); Platelet Count 209 10^3/uL (150-450); Red Cell Distribution Width 13.9 % (12-17); White Blood Count 9.3 10^3/uL (3.6-10.2)
[2023-08-27 05:55] LABS: Calcium 8.6 mg/dL (8.6-10.3); Creatinine, Serum 1.1 mg/dL (0.67-1.17); Magnesium 1.9 mg/dL (1.9-2.7); Potassium 4.3 mmol/L (3.5-5.0); eGFR CKD-EPI 77.8 (>60)
[2023-08-27] MEDS: DULoxetine DR 60 mg CAP PO SCH (08:37)
[2023-08-27] MEDS: COVID VAC 23-24(12+)(Moderna) SYR 0.5 ML IM ONE (09:40)
[2023-08-27 09:45] LABS: PCO2 Arterial 46 mmHg (35-45); PO2 Arterial 73 mmHg (80-100)
[2023-08-27] MEDS: cefTRIAXone 2 gm/50 mL D5W 2 GM/50 ML BAG IV SCH (10:44)
[2023-08-28 05:08] LABS: ABS Lymphocytes 1.1 10^3/uL (1.0-4.8); ABS Monocytes 0.8 10^3/uL (0.0-1.1); ABS Neutrophils 13.7 10^3/uL (1.5-7.6); ABS Nucleated RBC 0.04 10^3/ul; Hematocrit 48.2 % (38-53); Hemoglobin 16.3 g/dL (13.2-16.3); Lymphocyte % 7.2 %; Mean Corpuscular Hemoglobin 31.2 pg (27-33); Mean Corpuscular Hgb Conc 33.8 g/dL (31-36); Mean Corpuscular Volume 92.3 fL (80-97); Mean Platelet Volume 7.3 fL (7.5-11.2); Nucleated Red Blood Cells % 0.2 %/100WBC (0.0-0.8); Platelet Count 235 10^3/uL (150-450); Red Blood Count 5.22 10^6/uL (4.06-5.63); Red Cell Distribution Width 13.7 % (12-17); White Blood Count 15.6 10^3/uL (3.6-10.2)
[2023-08-28 06:38] LABS: Potassium 5.3 mmol/L (3.5-5.0)
[2023-08-28 06:39] LABS: Phosphorus 2.5 mg/dL (2.5-5.0)
[2023-08-28 06:40] LABS: Calcium 8.7 mg/dL (8.6-10.3); Creatinine, Serum 0.87 mg/dL (0.67-1.17)
[2023-08-28 06:41] LABS: Albumin 3.7 g/dL (3.2-5.2); Albumin/Globulin Ratio 1.3 (1-3); Globulin 2.8 g/dL (2-4); Total Bilirubin 0.5 mg/dL (0.2-1.0); Total Protein 6.5 g/dL (6.4-8.9)
[2023-08-28] MEDS: Furosemide 40 mg/4 ml IV VIAL IV ONE (09:37)
[2023-08-29 05:31] LABS: ABS Lymphocytes 1.5 10^3/uL (1.0-4.8); ABS Monocytes 0.7 10^3/uL (0.0-1.1); ABS Neutrophils 13.6 10^3/uL (1.5-7.6); ABS Nucleated RBC 0.02 10^3/ul; Hematocrit 51.7 % (38-53); Hemoglobin 17.4 g/dL (13.2-16.3); Lymphocyte % 9.2 %; Mean Corpuscular Hemoglobin 31.1 pg (27-33); Mean Corpuscular Hgb Conc 33.8 g/dL (31-36); Mean Corpuscular Volume 92.1 fL (80-97); Mean Platelet Volume 7.3 fL (7.5-11.2); Nucleated Red Blood Cells % 0.1 %/100WBC (0.0-0.8); Platelet Count 279 10^3/uL (150-450); Red Blood Count 5.61 10^6/uL (4.06-5.63); Red Cell Distribution Width 13.8 % (12-17); White Blood Count 15.7 10^3/uL (3.6-10.2)
[2023-08-29 06:15] LABS: Anion Gap 7 mmol/L (2-16); Blood Urea Nitrogen 24 mg/dL (6-24); CO2 Carbon Dioxide 30 mmol/L (22-32); Chloride 100 mmol/L (101-111); Creatinine, Serum 0.79 mg/dL (0.67-1.17); Glucose 189 mg/dL (70-100); Sodium 137 mmol/L (135-145)
[2023-08-29 07:23] LABS: Phosphorus 3.3 mg/dL (2.5-5.0); Potassium Redraw 5.1 mmol/L (3.5-5.0)
[2023-08-29] MEDS ORDERED: Dextrose 50% Syringe 50 ml 25 GM/50 ML SYRINGE IV PUSH PRN (08:56)
[2023-08-29] MEDS: Insulin GLARGINE 100 un/ml 10 ml VIAL SUBCUT SCH (11:40)
[2023-08-29] MEDS: Furosemide 40 mg/4 ml IV VIAL IV ONE (11:41)
[2023-08-29 20:54] LABS: Glucose Confirmatory 411 mg/dL (70-100)
[2023-08-30 06:54] LABS: ABS Lymphocytes 1.5 10^3/uL (1.0-4.8); ABS Monocytes 0.6 10^3/uL (0.0-1.1); ABS Neutrophils 9.7 10^3/uL (1.5-7.6); ABS Nucleated RBC 0.02 10^3/ul; Hemoglobin 17.2 g/dL (13.2-16.3); Lymphocyte % 12.4 %; Mean Corpuscular Hgb Conc 33.7 g/dL (31-36); Mean Corpuscular Volume 91.7 fL (80-97); Nucleated Red Blood Cells % 0.2 %/100WBC (0.0-0.8); Platelet Count 249 10^3/uL (150-450); Red Blood Count 5.56 10^6/uL (4.06-5.63); Red Cell Distribution Width 13.7 % (12-17); White Blood Count 11.9 10^3/uL (3.6-10.2)
[2023-08-30 07:07] LABS: Calcium 8.9 mg/dL (8.6-10.3); Creatinine, Serum 0.74 mg/dL (0.67-1.17); Phosphorus 3.4 mg/dL (2.5-5.0); Potassium 4.8 mmol/L (3.5-5.0)
[2023-08-30] MEDS: Insulin GLARGINE 100 un/ml 10 ml VIAL SUBCUT ONE (10:22)
[2023-08-30] MEDS: Furosemide 40 mg/4 ml IV VIAL IV ONE (14:28)
[2023-08-30] MEDS: methylPREDNISolone SOD SUCC 40 mg/ml 1 ml VIAL IV SCH (20:37)
[2023-08-31 04:29] LABS: ABS Lymphocytes 1.8 10^3/uL (1.0-4.8); ABS Monocytes 0.7 10^3/uL (0.0-1.1); ABS Neutrophils 10.6 10^3/uL (1.5-7.6); ABS Nucleated RBC 0.04 10^3/ul; Eosinophil % 0.1 %; Hematocrit 52.3 % (38-53); Hemoglobin 17.7 g/dL (13.2-16.3); Lymphocyte % 13.4 %; Mean Corpuscular Hemoglobin 30.6 pg (27-33); Mean Corpuscular Hgb Conc 33.9 g/dL (31-36); Mean Corpuscular Volume 90.4 fL (80-97); Mean Platelet Volume 6.9 fL (7.5-11.2); Nucleated Red Blood Cells % 0.3 %/100WBC (0.0-0.8); Platelet Count 281 10^3/uL (150-450); Red Blood Count 5.78 10^6/uL (4.06-5.63); Red Cell Distribution Width 13.6 % (12-17); White Blood Count 13.1 10^3/uL (3.6-10.2)
[2023-08-31 05:46] LABS: Anion Gap 8 mmol/L (2-16); Blood Urea Nitrogen 25 mg/dL (6-24); CO2 Carbon Dioxide 31 mmol/L (22-32); Calcium 8.9 mg/dL (8.6-10.3); Chloride 93 mmol/L (101-111); Creatinine, Serum 0.85 mg/dL (0.67-1.17); Glucose 303 mg/dL (70-100); Magnesium 2.1 mg/dL (1.9-2.7); Sodium 132 mmol/L (135-145); eGFR CKD-EPI 100.7 (>60)
[2023-08-31 07:03] LABS: Phosphorus 3.9 mg/dL (2.5-5.0)
[2023-08-31] MEDS: Insulin GLARGINE 100 un/ml 10 ml VIAL SUBCUT SCH (08:42)
[2023-09-01 06:56] LABS: Hematocrit 54.3 % (38-53); Hemoglobin 18.5 g/dL (13.2-16.3); Mean Corpuscular Hemoglobin 30.8 pg (27-33); Mean Corpuscular Volume 90.5 fL (80-97); Red Cell Distribution Width 13.4 % (12-17); White Blood Count 15.3 10^3/uL (3.6-10.2)
[2023-09-01 07:14] LABS: Calcium 9.1 mg/dL (8.6-10.3); Creatinine, Serum 0.99 mg/dL (0.67-1.17); Magnesium 2.2 mg/dL (1.9-2.7); Potassium 5.5 mmol/L (3.5-5.0); eGFR CKD-EPI 88.3 (>60)
[2023-09-01 07:56] LABS: ABS Basophils 0.1 10^3/uL (0.0-0.1); ABS Monocytes 0.8 10^3/uL (0.0-1.1); ABS Neutrophils 12.4 10^3/uL (1.5-7.6); ABS Nucleated RBC 0.04 10^3/ul; Eosinophil % 0.1 %; Lymphocyte % 12.8 %; Nucleated Red Blood Cells % 0.2 %/100WBC (0.0-0.8); Platelet Count 295 10^3/uL (150-450)
[2023-09-01 10:01] VITALS: BP 135/87
[2023-09-01] MEDS: SODIUM ZIRCONIUM CYCLOSILICATE 10 GM PACKET PO SCH (13:12)
== END 2023-09-01 13:23 | disposition home or self-care (01) | DRG 140 ==
LOC: ED 15:42 → EDHOLD 22:07 → SUATTDRO 22:07 → ICU 23:39 → MEDTELE 08-31 16:42
PROVIDERS: ADMIT Internal Medicine; ATTEND Hospitalist